=== PATIENT | male | born 1950 | race Caucasian/White ===

== ENCOUNTER → 2018-11-20 | Outpatient (CLI) | payer MEDICARE, OTHER ==
[2018-11-20 10:45] VITALS: BP 155/74; PULSE 86; TEMP 97.8; BMI 62.3
--- NOTE | 2018-11-20 12:23 | P.HPBAR ---
Bariatric H&P - History & Physicial H&P Date: 11/20/18 History & Physicial: Visit/CC: initial consult Patient initial contact: Initial weight: 194.138 kg Initial weight in pounds: 428.00 Height: 5 ft 9.5 in Initial BMI: 62.3 Last weight: Current weight: 194.138 kg Current weight in pounds: 428.00 Current BMI: 62.3 [place] body weight (based on NIH guidelines): 73.936 kg Excess body weight loss: 0.0% The patient is a 68 year-old M who presents for Bariatric Assessment. HPI: He looking into gastrectomy. His highest weight is at present. He was 280 to 320 pounds. He reports trouble with the hips, knees, and feet where he takes Lasix for swelling. He likes to be active in the summer time. His brother also has morbid obesity. No stomach or esophageal cancer. He reports taking gastritis from his potassium. He presents today at 428 pounds. He still has his gallbladder. No reports with food intolerance. Colonoscopy was 10 years ago. He walks in with his buggie. He loves his chicken wings. MS: 2+ pitting edema ABDOMEN: Nontender ASSESSMENT: 1. Morbid obesity PLAN: 1. Need bariatric labs 2. EGD and colonoscopy as he is also due for screening. 3. Medicare guidelines. 4. Applications Development Consultant for severe obstructive sleep apnea. 5. Case Management Director assessment advised. Past Medical History Past Medical History: Sleep Apnea/CPAP/BIPAP, Vascular Disorder Additional Past Medical History / Comment(s): venous insufficiency History of Any Multi-Drug Resistant Organisms: None Reported Past Surgical History: Orthopedic Surgery Additional Past Surgical History / Comment(s): lumbar fusion, right wrist surgery , thumb surgery Past Anesthesia/Blood Transfusion Reactions: No Reported Reaction Smoking Status: Former smoker Surgical - Exam Vital Signs Temp Pulse BP 97.8 F 86 155/74 11/20/18 10:24 11/20/18 10:24 11/20/18 10:24 Bariatric Checklist Checklist: Plan: Checklist: EGD: 1. Hiatal hernia: 2. H. Pylori: HgbA1c: Vitamin D: Smoking: Former smoker Primary care physician referral: babs tang Psychiatry clearance: Cardiology clearance: Sleep study: Diet journal: VTE risk score: VTE risk level: Rehab needs at discharge:
[2018-11-20 13:37] LABS: HGB 13.6 gm/dL (13.0-17.5); Hypochromasia Moderate; MCHC 31.6 g/dL (31.0-37.0); MCV 85.5 fL (80.0-100.0); Mean Platelet Volume 8.7; Platelet Count 166 k/uL (150-450); RBC 5.03 m/uL (4.30-5.90); RDW 15.5 % (11.5-15.5); WBC 8.3 k/uL (3.8-10.6)
[2018-11-20 13:40] LABS: Partial Thromboplastin Time 29.1 sec (22.0-30.0); Prothrombin Time 10.6 sec (9.0-12.0)
[2018-11-20 18:50] LABS: Parathyroid Hormone Intact 73.2 pg/mL (14.0-72.0)
[2018-11-20 20:50] LABS: Albumin 4.5 g/dL (3.80-4.90); Albumin/Globulin Ratio 1.41 (1.60-3.17); Anion Gap 10.5 mmol/L (4.00-12.00); Calcium 9.9 mg/dL (8.7-10.3); Carbon Dioxide 29.5 mmol/L (21.6-31.8); Globulin 3.2 g/dL (1.6-3.3); LDL Cholesterol,Calculated 144.2 mg/dL (0.0-131.0); Magnesium 1.8 mg/dL (1.5-2.4); Total Bilirubin 0.5 mg/dL (0.3-1.2); Total Protein 7.7 g/dL (6.2-8.2); VLDL Calculation 26.8 mg/dL (5.00-40.00)
[2018-11-20 21:08] LABS: Iron Saturation 14.51 (15.00-50.00)
[2018-11-20 21:23] LABS: Vitamin D 25 Hydroxy 12.1 ng/mL (30.0-100.0)
[2018-11-20 22:57] LABS: Hemoglobin A1C 7.3 % (4.0-6.0)
[2018-11-21 12:54] LABS: Zinc, Serum 81 ug/dL (60-130)
== END | disposition home or self-care (01) ==
LOC: BARWHC3 09:26
PROVIDERS: ATTEND Surgery Plastic and Reconstructive Surgery
DX: E66.01 Morbid (severe) obesity due to excess calories (principal); Z68.44 Body mass index [BMI] 60.0-69.9, adult; Z87.891 Personal history of nicotine dependence
CPT/HCPCS: 84255; 84134; 84425; 80061; 80053; 82607; 82728; 82525; 82746; 83540; 83550; 83735; 84100; 84443; 84590; 84630; 85027; 85610; 85730; 82306; 83970; 83036; 93005; 36415; G0463; 99201

== ENCOUNTER → 2019-01-19 | Outpatient (CLI) | payer MEDICARE, OTHER ==
[2019-01-19 12:51] VITALS: BMI 62.4
== END ==
LOC: BARWHC3 07:57
PROVIDERS: ATTEND Surgery Plastic and Reconstructive Surgery
DX: E66.01 Morbid (severe) obesity due to excess calories (principal); Z68.44 Body mass index [BMI] 60.0-69.9, adult
CPT/HCPCS: 97804

== ENCOUNTER 2019-01-26 09:40 | Day surgery (SDC) | payer MEDICARE, OTHER ==
[2019-01-21 14:57] VITALS: BMI 62.3
--- NOTE | 2019-01-25 21:00 | P.GSHP ---
History of Present Illness H&P Date: 01/26/19 CHIEF COMPLAINT: GERD and colon screen HISTORY OF PRESENT ILLNESS: The patient is a 68-year-old male who presents with gastroesophageal reflux disease and need for colon screen. Upper and lower endoscopy were offered for further evaluation and management. PAST MEDICAL HISTORY: Please see list. PAST SURGICAL HISTORY: Please see list. MEDICATIONS: Please see list. ALLERGIES: Please see list. SOCIAL HISTORY: No illicit drug use FAMILY HISTORY: No reports of Crohn disease or ulcerative colitis. REVIEW OF ORGAN SYSTEMS: CONSTITUTIONAL: No reports of fevers or chills. GI: Denies any blood in stools or constipation. PHYSICAL EXAM: VITAL SIGNS: Stable GENERAL: Well-developed pleasant in no acute distress. HEENT: No scleral icterus. Extraocular movements grossly intact. Moist buccal mucosa. NECK: Supple without lymphadenopathy. CHEST: Unlabored respirations. Equal bilateral excursions. CARDIOVASCULAR: Regular rate and rhythm. Distal 2+ pulses. ABDOMEN: Soft, nondistended. MUSCULOSKELETAL: No clubbing, cyanosis, or edema. ASSESSMENT: 1. Gastroesophageal reflux disease 2. Colon screen. PLAN: 1. Recommend proceeding with an upper and lower endoscopy Past Medical History Past Medical History: Diabetes Mellitus, Sleep Apnea/CPAP/BIPAP, Vascular Disorder Additional Past Medical History / Comment(s): venous insufficiency-BLE History of Any Multi-Drug Resistant Organisms: None Reported Past Surgical History: Back Surgery, Orthopedic Surgery Additional Past Surgical History / Comment(s): lumbar fusion, right wrist surgery , thumb surgery, LT HAND MIDDLE FINGER SX, EGD, COLONOSCOPY Past Anesthesia/Blood Transfusion Reactions: No Reported Reaction Smoking Status: Former smoker - Past Family History Mother Family Medical History: Cancer Medications and Allergies Home Medications Medication Instructions Recorded Confirmed Type Furosemide [Lasix] 40 mg PO DAILY 11/05/18 01/21/19 History Potassium Chloride 20 meq PO BID 11/05/18 01/21/19 History Ibuprofen [Motrin] 800 mg PO DIRECTED 11/20/18 01/21/19 History Dubois-3 Fatty Acids [Dubois-3] 1 tab PO DAILY 11/20/18 01/21/19 History metFORMIN HCL [Glucophage] 500 mg PO DAILY 01/19/19 01/21/19 History Ubidecarenone [Co Q-10] 100 mg PO DAILY 01/21/19 01/21/19 History Allergies Allergy/AdvReac Type Severity Reaction Status Date / Time duloxetine [From Cymbalta] AdvReac Vomiting Verified 01/21/19 14:44
[~2019-01-26 09:40] MED LIST: LACTATED RINGERS 1,000 ML IV SCH
[2019-01-26 10:44] VITALS: TEMP 98.1
[2019-01-26] MEDS ORDERED: LIDOCAINE 1% 20 ML VIAL (10MG/ML) FOR IV START INTRADERMA ONE (10:48)
[2019-01-26 10:53] LABS: Glucose,Whole Blood 118 mg/dL (75-99)
[2019-01-26] MEDS ORDERED: PROPOFOL 10 MG/ML 20 ML VIAL IV ONE (11:25)
--- NOTE | 2019-01-26 11:42 | P.PCN ---
Date of Procedure: 01/26/19 Description of Procedure: PREOPERATIVE DIAGNOSIS: Gastroesophageal reflux disease. Morbid obesity, BMI 62.3 Obstructive sleep apnea POSTOPERATIVE DIAGNOSIS: Gastroesophageal reflux disease. Morbid obesity, BMI 62.3 Obstructive sleep apnea Gastritis. OPERATION: Esophagogastroduodenoscopy with biopsies along antrum. SURGEON: Miranda Morris MD ANESTHESIA: MAC. INDICATIONS: The patient is a 68-year-old male who presents with a history of reflux disease. Benefits and risks of the procedure were described. Informed consent was obtained. DESCRIPTION: The patient was brought into the endoscopy suite and laid in the left lateral decubitus position. An Olympus gastroscope was passed along the posterior oropharynx down to the distal esophagus where the squamocolumnar junction was encountered at 43 cm from the incisors. The stomach was entered and no bile reflux was found. Additional findings are listed below. Biopsies with cold forceps were obtained of the antrum. The first through third portion of the duodenum was examined and unremarkable. Retroflexion of the scope confirmed Hill grade 2 lower esophageal valve. The squamocolumnar junction demonstrated LA grade B erosive esophagitis. The stomach was desufflated. The patient tolerated the procedure well. FINDINGS: Squamocolumnar junction 43 cm from the incisors. Diaphragmatic hiatus at 43 cm. Hill grade 2 lower esophageal valve. LA grade B erosive esophagitis. No active duodenitis. Chronic gastritis RECOMMENDATIONS: Upper endoscopy as needed.
--- NOTE | 2019-01-26 11:59 | P.PCN ---
Date of Procedure: 01/26/19 Description of Procedure: PREOPERATIVE DIAGNOSIS: Colonoscopy screening Super morbid obesity, BMI 62.3 Severe chronic obstructive pulmonary disease POSTOPERATIVE DIAGNOSIS: Colonoscopy screening Super morbid obesity, BMI 62.3 Severe chronic obstructive pulmonary disease Transverse colon polyp OPERATION: Colonoscopy to the ileocecal valve and appendiceal orifice. Colonoscopy with cold forceps biopsies. SURGEON: Miranda Morris MD. ANESTHESIA: MAC. INDICATIONS: The patient is a -year-old male who presents for colonoscopy screening. Last colonoscopy 10 years ago. Benefits and risks were described and informed consent was obtained. DESCRIPTION OF PROCEDURE: The patient had undergone Gatorade, MiraLAX and Dulcolax prep. He had been brought into the operating room and laid in the left lateral decubitus position. After adequate intravenous sedation, the rectum was examined with 2% lidocaine jelly. No external hemorrhoids were encountered. The rectal tone was within normal limits. No lesions were palpated in the rectal vault. An Olympus colonoscope was advanced until the ileocecal valve and appendiceal orifice were clearly viewed. The prep was good. The scope was removed with visualization of each mucosal fold. No scattered diverticulosis was encountered. At mid transverse colon, 4 mm adenoma was resected using cold forcep biopsy. No evidence of focal colitis was found. Retroflexion of the scope demonstrated no internal hemorrhoids without active bleeding or inflammation. The colon was desufflated. The patient had tolerated the procedure well. Withdrawal time was over 6 minutes. FINDINGS: Aronchick preparation quality scale 1 (1-5) No internal hemorrhoids No external hemorrhoids No arteriovenous malformations. No sigmoid diverticulosis Removal of 1 polyp: - Cold forceps biopsy at mid transverse colon, 5 mm polyp. No focal colitis. RECOMMENDATIONS: Repeat colonoscopy 5 years, 2023 Plan - Discharge Summary Discharge Rx Participant: Yes New Discharge Prescriptions: No Action Furosemide [Lasix] 40 mg PO DAILY Potassium Chloride 20 meq PO BID Ibuprofen [Motrin] 800 mg PO DIRECTED Amigo-3 Fatty Acids [Amigo-3] 1 tab PO DAILY metFORMIN HCL [Glucophage] 500 mg PO DAILY Ubidecarenone [Co Q-10] 100 mg PO DAILY Discharge Medication List Furosemide [Lasix] 40 mg PO DAILY 11/05/18 [History] Potassium Chloride 20 meq PO BID 11/05/18 [History] Ibuprofen [Motrin] 800 mg PO DIRECTED 11/20/18 [History] Amigo-3 Fatty Acids [Amigo-3] 1 tab PO DAILY 11/20/18 [History] metFORMIN HCL [Glucophage] 500 mg PO DAILY 01/19/19 [History] Ubidecarenone [Co Q-10] 100 mg PO DAILY 01/21/19 [History] Follow up Appointment(s)/Referral(s): [facility] [[facility]-STAFF] - 02/18/19 Patient Instructions/Handouts: Colorectal Polyps (DC) Activity/Diet/Wound Care/Special Instructions: Repeat colonoscopy in 5 years, 2023
[2019-01-26 12:11] VITALS: RESP 16
[2019-01-26 12:22] VITALS: BP 137/83; PULSE 83
== END 2019-01-26 12:45 | disposition home or self-care (01) ==
LOC: ORWHC2ENDO 09:40
PROVIDERS: ATTEND Surgery Plastic and Reconstructive Surgery
DX: Z12.11 Encounter for screening for malignant neoplasm of colon (principal); K63.5 Polyp of colon; K29.50 Unspecified chronic gastritis without bleeding; K22.10 Ulcer of esophagus without bleeding; E66.01 Morbid (severe) obesity due to excess calories; Z68.44 Body mass index [BMI] 60.0-69.9, adult; J44.9 Chronic obstructive pulmonary disease, unspecified; G47.33 Obstructive sleep apnea (adult) (pediatric); Z99.89 Dependence on other enabling machines and devices; E11.9 Type 2 diabetes mellitus without complications; I87.2 Venous insufficiency (chronic) (peripheral); Z87.891 Personal history of nicotine dependence; Z79.84 Long term (current) use of oral hypoglycemic drugs; Z79.1 Long term (current) use of non-steroidal anti-inflammatories (NSAID); Z79.899 Other long term (current) drug therapy; Z88.8 Allergy status to other drugs, medicaments and biological substances
CPT/HCPCS: 88305; 45380; 43239; J2704

== ENCOUNTER → 2019-02-18 | Outpatient (CLI) | payer MEDICARE, OTHER ==
[2019-02-18 13:31] VITALS: BP 149/83; PULSE 93; TEMP 98.5; BMI 61.4
--- NOTE | 2019-02-18 14:06 | P.PN ---
Subjective Progress Note Date: 02/18/19 DATE OF SERVICE: 02/18/2019 CHIEF COMPLAINT: Morbid obesity. HISTORY OF PRESENT ILLNESS: Kartik Andersen is a 68-year-old male who comes with lifelong morbid obesity. He reports arthritis of the hips, knees, and feet. He has developed diabetes type 2 which is a new diagnosis upon his initial assessment. He has also developed sleep apnea, venous insufficiency, hypertensive heart disease as a result of his morbid obesity. He has completed and upper endoscopy. He is looking into the sleeve gastrectomy. At height of 5 feet 9.5 inches, his ideal body weight is 168 pounds. He was 428 pounds. Today he comes in 421 pounds from 3 months ago. He has lost 6 pounds in 3 months. His body mass index down from 62.3 to 61.5. He is 253 pounds overweight. PAST MEDICAL HISTORY: 1. Morbid obesity due to excess calories 2. Body mass index of 62.3, initial 3. Osteoarthritis of the knees. 4. Hypertensive heart disease. 5. Osteoarthritis of the hips 6. Bilateral lower extremity edema 7. Obstructive sleep apnea 8. Venous insufficiency 9. Osteoarthritis of the lower back. 10. Vitamin D deficiency PAST SURGICAL HISTORY: 1. Lumbar fusion 2. Wrist surgary 3. Thumb surgery HOME MEDICATIONS: ALLERGIES: Medications and Allergies Home Medications Medication Instructions Recorded Confirmed Type Furosemide [Lasix] 40 mg PO DAILY 11/05/18 11/05/18 History Potassium Chloride 10 mg PO QID 11/05/18 11/05/18 History Ibuprofen [Motrin] 800 mg PO DIRECTED 11/20/18 11/20/18 History Placida-3 Fatty Acids [Placida-3] 1 tab PO DAILY 11/20/18 11/20/18 History Sodium, Potassium,Mag Sulfates 354 ml PO DIRECTED #1 kit 11/20/18 Rx [Suprep Bowel Prep Kit] Ergocalciferol [Vitamin D2 50,000 unit PO WEEKLY 12/04/18 12/04/18 History (DRISDOL)] Allergies Allergy/AdvReac Type Severity Reaction Status Date / Time duloxetine [From Cymbalta] AdvReac Vomiting Verified 11/05/18 08:11 SOCIAL HISTORY: Past tobacco use. FAMILY HISTORY: No family history of ulcerative colitis disease or Crohn's disease. Family history of morbid obesity. No lupus in the family. No reports of stomach or esophageal cancer. REVIEW OF ORGAN SYSTEMS: CONSTITUTIONAL: At height of 5 feet 9.5 inches, his ideal body weight is 168 pounds. He comes in 428 pounds. His body mass index is 62.3. He is 260 pounds overweight. HEENT: Denies any active troubles with vision or hearing. ENDOCRINE: No diabetes. No hypothyroidism. CARDIOVASCULAR: No past reports of palpitations or heart attacks or chest pain. RESPIRATORY: Has daytime somnolence. No asthma. GASTROINTESTINAL: Denies any bright red blood per rectum. No diarrhea. No constipation. MUSCULOSKELETAL: Has lower back pain and joint pain. Has osteoarthritis of the knees. NEURO: No headaches. No seizure disorders. PSYCH: No depression. No suicidal ideation. RHEUMATOLOGIC: No lupus. No rheumatoid arthritis. HEMATOLOGIC: Denies any abnormal bleeding or bruising. No personal history of DVTs. SKIN: No rash. No skin cancer. PHYSICAL EXAM: VITAL SIGNS: Height 5 foot 9.5 inches, weight 421 pounds. BMI 61.5 Vital Signs Temp 98.5 F 02/18/19 13:28 Pulse 93 02/18/19 13:28 Resp BP 149/83 02/18/19 13:28 Pulse Ox GENERAL: Well-developed in no acute distress. HEENT: No scleral icterus. Extraocular movements grossly intact. Hears conversational speech. No nasal drainage. NECK: Supple without lymphadenopathy. CHEST: Nonlabored respirations with equal bilateral excursions. CARDIOVASCULAR: Regular rate and regular rhythm. Distal 2+ pulses. ABDOMEN: Obese, soft, nontender, nondistended. MUSCULOSKELETAL: No clubbing, cyanosis. Gross strength 5/5 distal lower extremities. 2+ pitting edema NEURO: No focal or lateralizing signs. Cranial nerves 2 through 12 grossly within normal limits. PSYCH: Appropriate affect. Alert and oriented to person, place and time. SKIN: Good skin turgor. Well perfused. EGD FINDINGS: Squamocolumnar junction 43 cm from the incisors. Diaphragmatic hiatus at 43 cm. Hill grade 2 lower esophageal valve. LA grade B erosive esophagitis. No active duodenitis. Chronic gastritis Final Pathologic Diagnosis A. GASTRIC ANTRUM, BIOPSY: Mild chronic gastritis. Helicobacter pylori organisms are not identified on routine H+E sections. B. TRANSVERSE COLON, BIOPSY: Benign colonic mucosa with mild reactive/hyperplastic changes. COLON FINDINGS: [facility] preparation quality scale 1 (1-5) No internal hemorrhoids No external hemorrhoids No arteriovenous malformations. No sigmoid diverticulosis Removal of 1 polyp: - Cold forceps biopsy at mid transverse colon, 5 mm polyp. No focal colitis. ASSESSMENT: 1. Morbid obesity due to excess calories 2. Body mass index of 62.3 to 61.5 3. Osteoarthritis of the knees. 4. Hypertensive heart disease. 5. Osteoarthritis of the hips 6. Bilateral lower extremity edema 7. Obstructive sleep apnea 8. Venous insufficiency 9. Osteoarthritis of the lower back. 10. Vitamin D deficiency 11. Elevated Hgb A1C with new diagnosis of diabetes type 2 12. Iron deficiency anemia 13. Vitamin A deficiency 14. Erosive esophagitis PLAN: 1. Bariatric options between a sleeve, band and a Radu-en-Y gastric bypass were reviewed in detail. The patient elected for a sleeve gastrectomy. Robotic assisted approach described. 2. The [place] [facility] Data was also reviewed with benefits and risks as described. 3. An 8 page second-generation bariatric consent form was reviewed in detail including potential of bleeding, infection, leaks, adequate weight loss, nutritional deficiencies which the patient demonstrated understanding of the risks. 4. A 2 week high-protein low caloric 800 kcal diet described to address hepatomegaly. 5. Preoperative labs including complete metabolic panel and CBC with type and screen recommended. 6. DVT prophylaxis per [place] [facility]. 7. Antibiotic prophylaxis. 8. Inpatient hospitalization anticipated for more than 2 nights. 9. All questions and concerns were addressed with the patient. 10. He is very high risk of perioperative complications with his moderate obstructive sleep apnea, hypertensive heart disease and limited mobility. Objective - Vital Signs Vital signs: Vital Signs Temp 98.5 F 02/18/19 13:28 Pulse 93 02/18/19 13:28 Resp BP 149/83 02/18/19 13:28 Pulse Ox Intake & Output 02/17/19 02/18/19 02/18/19 18:59 06:59 18:59 Weight 191.507 kg
== END | disposition home or self-care (01) ==
LOC: BARWHC3 12:55
PROVIDERS: ATTEND Surgery Plastic and Reconstructive Surgery
DX: E66.01 Morbid (severe) obesity due to excess calories (principal); M17.0 Bilateral primary osteoarthritis of knee; I11.9 Hypertensive heart disease without heart failure; M16.0 Bilateral primary osteoarthritis of hip; R60.0 Localized edema; G47.33 Obstructive sleep apnea (adult) (pediatric); I87.2 Venous insufficiency (chronic) (peripheral); E55.9 Vitamin D deficiency, unspecified; E11.9 Type 2 diabetes mellitus without complications; D58.2 Other hemoglobinopathies; D50.9 Iron deficiency anemia, unspecified; E50.9 Vitamin A deficiency, unspecified; M19.90 Unspecified osteoarthritis, unspecified site; K22.10 Ulcer of esophagus without bleeding; Z79.1 Long term (current) use of non-steroidal anti-inflammatories (NSAID); Z79.899 Other long term (current) drug therapy; Z87.891 Personal history of nicotine dependence; Z68.44 Body mass index [BMI] 60.0-69.9, adult; Z88.8 Allergy status to other drugs, medicaments and biological substances
CPT/HCPCS: 99211

== ENCOUNTER → 2019-02-27 | Outpatient (CLI) | payer MEDICARE, OTHER ==
[2019-02-27 10:34] LABS: Basophils % (A) 0 %; Eosinophils # (A) 0.2 k/uL (0-0.7); Eosinophils % (A) 2 %; HGB 13.9 gm/dL (13.0-17.5); Lymphocytes # (A) 1.1 k/uL (1.0-4.8); Lymphocytes % (A) 12 %; MCH 26.2 pg (25.0-35.0); MCHC 30.9 g/dL (31.0-37.0); MCV 84.7 fL (80.0-100.0); Mean Platelet Volume 8.7; Monocytes # (A) 0.4 k/uL (0-1.0); Monocytes % (A) 4 %; Neutrophils # (A) 7.2 k/uL (1.3-7.7); Neutrophils % (A) 79 %; Platelet Count 178 k/uL (150-450); RBC 5.31 m/uL (4.30-5.90); RDW 15.1 % (11.5-15.5); WBC 9.2 k/uL (3.8-10.6)
[2019-02-27 10:48] LABS: ALT 32 U/L (21-72); AST 44 U/L (17-59); African American GFR (CKD) >90 (>60 ml/min/1.73 sqM); Albumin 4.4 g/dL (3.5-5.0); Alkaline Phosphatase 86 U/L (38-126); Anion Gap 9 mmol/L; Blood Urea Nitrogen 23 mg/dL (9-20); Calcium 9.6 mg/dL (8.4-10.2); Carbon Dioxide 30 mmol/L (22-30); Chloride 100 mmol/L (98-107); Glucose 106 mg/dL (74-99); Potassium 4.5 mmol/L (3.5-5.1); Sodium 139 mmol/L (137-145); Total Bilirubin 0.8 mg/dL (0.2-1.3)
== END ==
LOC: LABPAT 09:47
PROVIDERS: ATTEND Surgery Plastic and Reconstructive Surgery
DX: Z01.812 Encounter for preprocedural laboratory examination (principal)
CPT/HCPCS: 80053; 85025

== ENCOUNTER 2019-03-09 09:53 | Inpatient (IN) | payer MEDICARE, OTHER ==
--- NOTE | 2019-03-09 06:23 | P.GSHP ---
History of Present Illness H&P Date: 03/09/19 DATE OF SERVICE: 03/09/2019 CHIEF COMPLAINT: Morbid obesity HISTORY OF PRESENT ILLNESS: Kartik Andersen is a 68-year-old male who comes with lifelong morbid obesity. He is looking into the sleeve gastrectomy. He reports arthritis of the hips, knees, and feet. He has been recently diagnosed with diabetes type 2 and has hypertensive heart disease including obstructive sleep apnea. At height of 5 feet 9.5 inches, his ideal body weight is 168 pounds. He was 428 pounds. His body mass index was 62.3. He was 260 pounds overweight. PAST MEDICAL HISTORY: 1. Morbid obesity due to excess calories 2. Body mass index of 62.3, initial 3. Osteoarthritis of the knees. 4. Hypertensive heart disease. 5. Osteoarthritis of the hips 6. Bilateral lower extremity edema 7. Obstructive sleep apnea 8. Venous insufficiency 9. Osteoarthritis of the lower back. 10. Vitamin D deficiency PAST SURGICAL HISTORY: 1. Lumbar fusion 2. Wrist surgary 3. Thumb surgery HOME MEDICATIONS: ALLERGIES: Home Medications Medication Instructions Recorded Confirmed Type Furosemide [Lasix] 40 mg PO DAILY 11/05/18 11/05/18 History Potassium Chloride 10 mg PO QID 11/05/18 11/05/18 History Ibuprofen [Motrin] 800 mg PO DIRECTED 11/20/18 11/20/18 History Blair-3 Fatty Acids [Blair-3] 1 tab PO DAILY 11/20/18 11/20/18 History Sodium, Potassium,Mag Sulfates 354 ml PO DIRECTED #1 kit 11/20/18 Rx [Suprep Bowel Prep Kit] Ergocalciferol [Vitamin D2 50,000 unit PO WEEKLY 12/04/18 12/04/18 History (DRISDOL)] Allergies Allergy/AdvReac Type Severity Reaction Status Date / Time duloxetine [From Cymbalta] AdvReac Vomiting Verified 11/05/18 08:11 SOCIAL HISTORY: Past tobacco use. FAMILY HISTORY: No family history of ulcerative colitis disease or Crohn's disease. Family history of morbid obesity. No lupus in the family. No reports of stomach or esophageal cancer. REVIEW OF ORGAN SYSTEMS: CONSTITUTIONAL: At height of 5 feet 9.5 inches, his ideal body weight is 168 pounds. He comes was 428 pounds. His body mass index is 62.3. He is 260 poun ds overweight. HEENT: Denies any active troubles with vision or hearing. ENDOCRINE: No diabetes. No hypothyroidism. CARDIOVASCULAR: No past reports of palpitations or heart attacks or chest pain. RESPIRATORY: Has daytime somnolence. No asthma. GASTROINTESTINAL: Denies any bright red blood per rectum. No diarrhea. No constipation. MUSCULOSKELETAL: Has lower back pain and joint pain. Has osteoarthritis of the knees. NEURO: No headaches. No seizure disorders. PSYCH: No depression. No suicidal ideation. RHEUMATOLOGIC: No lupus. No rheumatoid arthritis. HEMATOLOGIC: Denies any abnormal bleeding or bruising. No personal history of DVTs. SKIN: No rash. No skin cancer. PHYSICAL EXAM: VITAL SIGNS: Height 5 foot 9.5 inches, weight 421 pounds. BMI 61.3 GENERAL: Well-developed in no acute distress. HEENT: No scleral icterus. Extraocular movements grossly intact. Hears conversational speech. No nasal drainage. NECK: Supple without lymphadenopathy. CHEST: Nonlabored respirations with equal bilateral excursions. CARDIOVASCULAR: Regular rate and regular rhythm. Distal 2+ pulses. ABDOMEN: Obese, soft, nontender, nondistended. MUSCULOSKELETAL: No clubbing, cyanosis. Gross strength 5/5 distal lower extremities. 2+ pitting edema NEURO: No focal or lateralizing signs. Cranial nerves 2 through 12 grossly within normal limits. PSYCH: Appropriate affect. Alert and oriented to person, place and time. SKIN: Good skin turgor. Well perfused. ASSESSMENT: 1. Morbid obesity due to excess calories 2. Body mass index of 62.3, initial 3. Osteoarthritis of the knees. 4. Hypertensive heart disease. 5. Osteoarthritis of the hips 6. Bilateral lower extremity edema 7. Obstructive sleep apnea 8. Venous insufficiency 9. Osteoarthritis of the lower back. 10. Vitamin D deficiency PLAN: 1. Bariatric options between a sleeve, band and a Radu-en-Y gastric bypass were reviewed in detail. The patient elected for a sleeve gastrectomy. Robotic assisted approach described. 2. The [place] [facility] Data was also reviewed with benefits and risks as described. 3. An 8 page second-generation bariatric consent form was reviewed in detail including potential of bleeding, infection, leaks, adequate weight loss, nutritional deficiencies which the patient demonstrated understanding of the risks. 4. A 2 week high-protein low caloric 800 kcal diet described to address hepatomegaly. 5. Preoperative labs including complete metabolic panel and CBC with type and screen recommended. 6. DVT prophylaxis per [place] [facility]. 7. Antibiotic prophylaxis. 8. Inpatient hospitalization anticipated for more than 2 nights. 9. All questions and concerns were addressed with the patient. Past Medical History Past Medical History: Diabetes Mellitus, Rheumatoid Arthritis (RA), Skin Disorder, Sleep Apnea/CPAP/BIPAP, Vascular Disorder Additional Past Medical History / Comment(s): past hypertension-not currently on rx, hx varicose veins, no CPAP used, gout, legs occ turn purple from knees down from poor circulation, occ edema lower legs, "fractured L5" History of Any Multi-Drug Resistant Organisms: None Reported Past Surgical History: Back Surgery, Orthopedic Surgery Additional Past Surgical History / Comment(s): lumbar fusion(hardware), right wrist partial fusion , left thumb reconstruction after crushing injury Past Anesthesia/Blood Transfusion Reactions: No Reported Reaction Additional Past Anesthesia/Blood Transfusion Reaction / Comment(s): claustrophobia Smoking Status: Former smoker - Past Family History Mother Family Medical History: Cancer Medications and Allergies Home Medications Medication Instructions Recorded Confirmed Type Furosemide [Lasix] 40 mg PO DAILY 11/05/18 03/04/19 History Potassium Chloride 20 meq PO BID 11/05/18 03/04/19 History Blair-3 Fatty Acids [Blair-3] 1 tab PO DAILY 11/20/18 03/04/19 History metFORMIN HCL [Glucophage] 500 mg PO DAILY 01/19/19 03/04/19 History Ubidecarenone [Co Q-10] 100 mg PO DAILY 01/21/19 03/04/19 History Ibuprofen [Motrin] 800 mg PO TID PRN 03/04/19 03/04/19 History Oxymetazoline 0.05% Nasl [place] 2 spray EA NOSTRIL BID PRN 03/04/19 03/04/19 History [Afrin 0.05% Nasal [place]] Allergies Allergy/AdvReac Type Severity Reaction Status Date / Time duloxetine [From Cymbalta] AdvReac Vomiting Verified 03/04/19 08:09
[~2019-03-09 09:53] MED LIST changes: +CHLORHEXIDINE GLUCONATE 15 ML CUP MUCOUS MEM ONE; +DEXAMETHASONE SOD PHOSPHATE 10 MG/ML 1 ML VIAL IV ONE; +ENOXAPARIN 40 MG/0.4 ML SYRINGE SQ ONE; -LACTATED RINGERS 1,000 ML IV SCH; +LIDOCAINE 1% 20 ML VIAL (10MG/ML) FOR IV START INTRADERMA PRN; +MIDAZOLAM 2 MG/2 ML VIAL IV PRN; +PANTOPRAZOLE 40 MG/10 ML VIAL IV ONE; +ceFAZolin 3 GM in SODIUM CHLORIDE 0.9% 100 ML IVPB ONE; +fentaNYL (PF) 50 MCG/ML 2 ML AMP IV PRN
[2019-03-09 11:15] LABS: Glucose,Whole Blood 108 mg/dL (75-99)
[2019-03-09] MEDS ORDERED: ONDANSETRON 4 MG/2 ML VIAL IVP ONE (11:15)
[2019-03-09] MEDS ORDERED: LACTATED RINGERS 1,000 ML IV ONE (11:15)
[2019-03-09] MEDS ORDERED: fentaNYL (PF) 50 MCG/ML 2 ML AMP ONE (12:00)
[2019-03-09] MEDS ORDERED: NEOSTIGMINE 1 MG/ML 10 ML VIAL ONE (12:00)
[2019-03-09] MEDS ORDERED: KETAMINE 10 MG/ML 20 ML VIAL ONE (12:00)
[2019-03-09] MEDS ORDERED: LIDOCAINE 1% INJ 10MG/ML (20 ML MDV) ONE (12:00)
[2019-03-09] MEDS ORDERED: ROCURONIUM BROMIDE 10 MG/ML 10 ML VIAL IV ONE (12:00)
[2019-03-09] MEDS ORDERED: SUCCINYLCHOLINE CHLORIDE VIAL 200 MG/10 ML VIAL IV ONE (12:00)
[2019-03-09] MEDS ORDERED: PROPOFOL 10 MG/ML 20 ML VIAL IV ONE (12:00)
[2019-03-09] MEDS ORDERED: GLYCOPYRROLATE 0.2 MG/ML 2 ML VIAL ONE (12:00)
[2019-03-09] MEDS ORDERED: MIDAZOLAM 2 MG/2 ML VIAL ONE (12:00)
[2019-03-09] MEDS ORDERED: BUPIVACAINE (PF) 0.5% 30 ML VIAL SQ ONE (12:18)
[2019-03-09] MEDS ORDERED: OXYMETAZOLINE 0.05% NASL SPRAY 1 SPRAY BOTTLE EA NOSTRIL PRN (14:18)
[2019-03-09] MEDS ORDERED: HYDROmorphone 1 MG/ML 1 ML SYRINGE IVP PRN (14:21)
[2019-03-09] MEDS ORDERED: NALOXONE 0.4 MG/ML 1 ML VIAL IV PRN (14:21)
[2019-03-09] MEDS ORDERED: HYDROcodone/APAP 15 ML SOLUTION PO PRN (14:21)
--- NOTE | 2019-03-09 14:26 | P.OP ---
Date of Procedure: 03/09/19 Description of Procedure: SURGEON: YONNY VASQUEZ MD PREOPERATIVE DIAGNOSES: 1. Morbid obesity. 2. Body mass index of 61.4 3. Osteoarthritis of the knees. 4. Osteoarthritis of the hips. 5. Osteoarthritis of the lower back. 6. Obstructive sleep apnea. 7. Hypertensive heart disease. 8. Osteoarthritis of the ankles. 9. Gastroesophageal reflux disease. POSTOPERATIVE DIAGNOSES: 1. Morbid obesity. 2. Body mass index of 47.6 to 41.1 3. Osteoarthritis of the knees. 4. Osteoarthritis of the hips. 5. Osteoarthritis of the lower back. 6. Obstructive sleep apnea. 7. Hypertensive heart disease. 8. Osteoarthritis of the ankles. 9. Gastroesophageal reflux disease. Cirrhosis of the liver with hepatomegaly Peritoneal adhesions left upper abdomen OPERATION: 1. Robotic assisted daVinci Xi laparoscopic sleeve gastrectomy with 40-Kittitian bougie, multiport. 2. Intraoperative esophagogastroduodenoscopy. ANESTHESIA: Gen. local anesthetic ESTIMATED BLOOD LOSS: 30 mL SPECIMENS REMOVED: Sleeve gastrectomy COMPLICATIONS: None. INDICATIONS: is a 68-year-old male with long-standing morbid obesity. He is looking into a sleeve gastrectomy. He comes in with osteoarthritis of multipe weight bearing joints, hypertensive heart disease and obstructive sleep apnea as a result of his obesity. At his height of 5 foot 9.5 inches, his ideal body weight is pounds. He had weighed pounds. Today, he comes in weighing pounds. Body mass index was down to . He is 114 pounds overweight. All surgical options for morbid obesity had been described using the [place] bariatric surgery collaborative comorbidity resolution including complication risk score. A second-generation bariatric consent form was described in detail including the possibility of protein malnutrition, leaks, gastric stricture, venous thrombosis, gastroesophageal reflux disease, need for further surgery for which he demonstrated understanding. Benefits and risks of the procedure were described at length. Informed consent was obtained. DESCRIPTION: The patient was brought into the operating room theater. Preoperatively he had received Lovenox subcutaneously for DVT prophylaxis. Additionally he had Peridex oral solution as an oral decontaminant. After general induction, the abdomen was prepped and draped in standard sterile fashion. An Ioban draping was placed along the abdomen. Farah catheter was placed. A robotic da Tahira Xi system was prepped and primed. At 15 cm from the xiphoid, proposed port sites were marked with indelible marker along the anterior axillary line bilaterally, mid axillary line bilaterally with each ports were marked 10 to 15 cm from each other. The clinical physician assistant port was marked along the left lateral abdominal wall. The robotic stapler port was marked for the right midclavicular line. A 5 mm 0 degrees laparoscopic trocar entry was performed along the left upper quadrant. The abdomen was insufflated to 15 mmHg pressure he tolerated well. Diagnostic laparoscopy demonstrated no injury to bowel, viscera, or mesentery. The liver surface was unremarkable without evidence of hepatomegaly or fatty liver disease. No injury had occurred to the small bowel or viscera. Along the hiatus no recurrent hiatal hernia was found. A 8 mm port was placed along the right upper abdominal wall after exchanging the 5 mm port. A separate 8 mm port was placed along the left lateral abdominal wall. Please note that the ports were placed at least 20 cm away from the target anatomy. Care was taken to check each robotic arms were safely away from collision with the bed or the patient. At the epigastrium, a medium sized Yo liver retractor was placed under direct visualization with the [employer] Lead placed under the right shoulder of the patient. Next, 12-mm robot stapler port was placed along the right upper quadrant. The camera 8-mm port was maintained along the epigastrium. The patient was repositioned in reverse Trendelenburg position at 16-degrees after lowering the bed. The robot was docked along the left side of the patient. Using a grasper for arm 4, a veseel sealer for arm 3, including grasper for arm 1, the robotic system was docked and primed as described. Instruments were interchanged by the clinical physician assistant for stapler loads. The camera wa s placed at 30-degrees down. I had sat at the console. The pylorus was identified and 6 cm proximally along the greater curvature of the stomach, the short gastrics were mobilized upwards to the angle of His using a vessel sealer. Hemostasis was excellent during this portion of the procedure. Next, the upper pole of the stomach was adherent to the left mary, which was gently dissected free using atraumatic grasper. The nursing postal supervisor placed a 40-Kittitian blunted tip bougie into the stomach. Robotic stapler black loads 60 mm x 2 followed by green 60 mm x 5 were used to create the sleeve. Initial firing was across the antrum of the stomach towards the angle of His. The staple line was completely hemostatic and linear without corkscrewing. Hemostasis was excellent. The space from the angularis incisura of the sleeve was approximately 4 cm. I then went to the head of the bed to perform the intraoperative esophagogastroduodenoscopy leak test. The upper pole of the stomach was bathed using normal saline solution. The scope was withdrawn with careful inspection along the staple line for which no leaks were found along the entire length. Additionally, the sleeve was completely hemostatic without any encroachment along the angularis incisura. Its topology was a soft "J". No stricture was encountered upon placement of the scope. The GI tract was desufflated. The patient tolerated this portion of the procedure well. The scope was completely withdrawn. The robot was undocked. I then rescrubbed into case, whereby the irrigation fluid was aspirated from the abdominal cavity. Tisseel fibrin sealant was placed along the entire staple length. Once dried the Yo liver retractor was removed. Attention was now brought to removal of the specimen. The distal end of the sleeve gastrectomy specimen was brought out through the 12 mm port at the left upper quadrant. The specimen was gently removed en total, corresponding to 27 cm x 5 cm sleeve gastrectomy specimen. No contamination had occurred during this process. All instruments and pneumoperitoneum including irrigation fluid was removed from the abdominal cavity. The 12 mm port site was irrigated with warm normal saline solution and diluted hydron peroxide. The 12-mm port site was reapproximated using 0 Vicryl and Gordo-Antonio of the left upper quadrant. The final incisions were closed using subcuticular interrupted suture of 4-0 Monocryl. Dermabond was applied to the skin once the skin had been cleansed. OptiFoam dressing was placed along the stomach extraction site. At the end of the procedure, needle, sponge, and instrument count was verified correct by the log data technician. The patient was taken to the postanesthesia care unit in stable condition. He had tolerated the procedure well. Intraoperative films and findings were reviewed with the patient's family. FINDINGS: 1. Negative intraoperative esophagogastrojejunoscopy leak test. 2. No large hiatus hernia. 3. Total of 7 staplers used including 2 - 60 mm black and 5 - 60 mm green robot romulo used to create the gastric sleeve. 4. Sleeve gastrectomy 27 x 5 cm
[2019-03-09 14:33] LABS: Glucose,Whole Blood 133 mg/dL (75-99)
[2019-03-09] MEDS ORDERED: BENZOCAINE/MENTHOL LOZENG 1 EACH LOZENGE MUCOUS MEM PRN (15:30)
[2019-03-09] MEDS: ALBUTEROL NEBULIZED 2.5 MG/3 ML INHALATION SCH ×2 (15:41→20:02)
[2019-03-09] MEDS: LACTATED RINGERS 1,000 ML IV SCH (16:56)
[2019-03-09 17:03] LABS: Glucose,Whole Blood 143 mg/dL (75-99)
[2019-03-09] MEDS: INSULIN ASPART (NovoLOG) 100 UNIT/ML VIAL SQ SCH (17:27)
[2019-03-09] MEDS: 0.9% NACL WITH KCL 20 MEQ/L 1,000 ML IV SCH ×2 (17:30→23:05)
[2019-03-09] MEDS: ACETAMINOPHEN IV (For NPO) 1,000 MG in EMPTY BAG 1 BAG IVPB SCH ×2 (17:30→23:00)
[2019-03-10 00:05] LABS: Glucose,Whole Blood 127 mg/dL (75-99)
[2019-03-10] MEDS: INSULIN ASPART (NovoLOG) 100 UNIT/ML VIAL SQ SCH ×3 (00:14→12:08)
[2019-03-10] MEDS: 0.9% NACL WITH KCL 20 MEQ/L 1,000 ML IV SCH (03:59)
[2019-03-10] MEDS: LACTATED RINGERS 1,000 ML IV SCH (04:57)
[2019-03-10 06:01] LABS: Glucose,Whole Blood 110 mg/dL (75-99)
[2019-03-10] MEDS: ACETAMINOPHEN IV (For NPO) 1,000 MG in EMPTY BAG 1 BAG IVPB SCH (06:39)
[2019-03-10] MEDS: ALBUTEROL NEBULIZED 2.5 MG/3 ML INHALATION SCH ×2 (07:10→11:04)
[2019-03-10] MEDS ORDERED: 0.9% NACL WITH KCL 20 MEQ/L 1,000 ML IV SCH (08:00)
[2019-03-10 08:59] LABS: African American GFR (CKD) >90 (>60 ml/min/1.73 sqM); Anion Gap 13 mmol/L; Blood Urea Nitrogen 16 mg/dL (9-20); Calcium 8.9 mg/dL (8.4-10.2); Carbon Dioxide 22 mmol/L (22-30); Chloride 103 mmol/L (98-107); Phosphorus 2.9 mg/dL (2.5-4.5); Sodium 138 mmol/L (137-145)
[2019-03-10] MEDS ORDERED: ENOXAPARIN 40 MG/0.4 ML SYRINGE SQ SCH (09:00)
[2019-03-10 09:06] LABS: Potassium 5.1 mmol/L (3.5-5.1)
[2019-03-10 09:09] LABS: Basophils % (A) 0 %; Eosinophils # (A) 0.1 k/uL (0-0.7); Eosinophils % (A) 1 %; HCT 45.2 % (39.0-53.0); HGB 14.2 gm/dL (13.0-17.5); Hypochromasia Slight; Lymphocytes # (A) 1.2 k/uL (1.0-4.8); Lymphocytes % (A) 10 %; MCH 27.5 pg (25.0-35.0); MCHC 31.4 g/dL (31.0-37.0); MCV 87.7 fL (80.0-100.0); Mean Platelet Volume 10.7; Monocytes % (A) 8 %; Neutrophils # (A) 9.7 k/uL (1.3-7.7); Neutrophils % (A) 80 %; RBC 5.16 m/uL (4.30-5.90); WBC 12.1 k/uL (3.8-10.6)
[2019-03-10 09:18] LABS: Platelet Count 150 k/uL (150-450)
[2019-03-10 09:22] VITALS: BP 149/71; RESP 12; TEMP 98.2
--- NOTE | 2019-03-10 09:24 | FL ---
EXAMINATION TYPE: FL UGI DATE OF EXAM: 03/10/2019 CLINICAL HISTORY: Status post gastric sleeve. TECHNIQUE: Limited esophagram is performed utilizing 30 mL of Isovue-370. A total of 1 minute and 2 seconds of fluoroscopic time was utilized during procedure. 23 fluoroscopic images were saved. COMPARISON: None. FINDINGS: The patient swallowed contrast without difficulty or delay. Esophageal peristalsis and mo tility are within normal limits. There is very mildly delayed flow of contrast along the diaphragmat ic hiatus into proximal stomach and subsequent flow into gastric sleeve. There is good flow from dist al sleeve into pylorus and proximal duodenum. Patient remains asymptomatic. There is no evidence of c ontrast extravasation to suggest leak. IMPRESSION: No evidence of leak status post recent gastric sleeve surgery. Very mild delay at the gas troesophageal junction likely relates to postoperative edema.
[2019-03-10 11:05] VITALS: PULSE 92
--- NOTE | 2019-03-10 11:23 | P.DS ---
Providers Date of admission: 03/09/19 10:32 Expected date of discharge: 03/10/19 Attending physician: Miranda Morris Primary care physician: Feli Page MD - Discharge Diagnosis(es) (1) Obesity Current Visit: Yes Status: Acute (2) Osteoarthritis Current Visit: Yes Status: Acute (3) Hypertensive heart disease Current Visit: Yes Status: Acute (4) GERD (gastroesophageal reflux disease) Current Visit: Yes Status: Acute Hospital Course: 68-year-old male who underwent robotic-assisted laparoscopic sleeve gastrectomy on 03/09/2019. Patient is doing well postoperatively without any immediate complications. He is tolerating clear liquid diet. Postoperative esophagram completed negative for leak or obstruction. Pain is controlled on oral medications. Vital signs have been stable. He is stable for discharge home today. Please see EMR for further hospital course details. Discharge Diagnosis 1. Morbid obesity. 2. Body mass index of 47.6 to 41.1 3. Osteoarthritis of the knees. 4. Osteoarthritis of the hips. 5. Osteoarthritis of the lower back. 6. Obstructive sleep apnea. 7. Hypertensive heart disease. 8. Osteoarthritis of the ankles. 9. Gastroesophageal reflux disease. 10. Cirrhosis of the liver with hepatomegaly 11. Peritoneal adhesions left upper abdomen Nurse practitioner note has been reviewed by physician. Signing provider agrees with the documented findings, assessment, and plan of care. Patient Condition at Discharge: Stable Plan - Discharge Summary Discharge Rx Participant: No New Discharge Prescriptions: New Acetaminophen Tab [Tylenol Tab] 650 mg PO Q4H PRN #30 tablet PRN Reason: Pain Bisacodyl [Dulcolax] 5 mg PO DAILY PRN #10 tablet.dr PRN Reason: Constipation Simethicone 40 mg/0.6 ml Drops [Mylicon Drops] 40 mg PO PCHS PRN #30 ml PRN Reason: gas Omeprazole 40 mg PO DAILY #30 cap Ondansetron Odt [Zofran Odt] 4 mg PO Q8HR PRN #9 tab PRN Reason: Nausea Continue Oxymetazoline 0.05% Nasl Harwood [Afrin 0.05% Nasal Harwood] 2 spray EA NOSTRIL BID PRN PRN Reason: Congestion Discontinued Furosemide [Lasix] 40 mg PO DAILY Potassium Chloride 20 meq PO BID Buckner-3 Fatty Acids [Buckner-3] 1,000 mg PO DAILY metFORMIN HCL [Glucophage] 500 mg PO DAILY Ubidecarenone [Co Q-10] 100 mg PO DAILY Ibuprofen [Motrin] 800 mg PO TID PRN PRN Reason: Pain Discharge Medication List Oxymetazoline 0.05% Nasl Harwood [Afrin 0.05% Nasal Harwood] 2 spray EA NOSTRIL BID PRN 03/04/19 [History] Acetaminophen Tab [Tylenol Tab] 650 mg PO Q4H PRN #30 tablet 03/10/19 [Rx] Bisacodyl [Dulcolax] 5 mg PO DAILY PRN #10 tablet. 03/10/19 [Rx] Omeprazole 40 mg PO DAILY #30 cap 03/10/19 [Rx] Ondansetron Odt [Zofran Odt] 4 mg PO Q8HR PRN #9 tab 03/10/19 [Rx] Simethicone 40 mg/0.6 ml Drops [Mylicon Drops] 40 mg PO PCHS PRN #30 ml 03/10/19 [Rx] Follow up Appointment(s)/Referral(s): [facility] [[facility]-STAFF] - 03/13/19 Activity/Diet/Wound Care/Special Instructions: Tylenol as needed for pain. BREAK TABLETS IN HALF OR DISSOLVE IN WATER BEFORE TAKING No lifting over 4 pounds You may shower. No soaking or tub baths Very light activity until you are reevaluated at your follow up appointment with your surgeon Liquid diet per bariatric dietitian instructions (see handouts given to you)
[2019-03-10 12:02] LABS: Glucose,Whole Blood 100 mg/dL (75-99)
[2019-03-10 13:46] VITALS: BMI 61.4
== END 2019-03-10 14:28 | disposition home or self-care (01) | DRG 621 ==
LOC: 2ORMAIN 10:32 → 4SSUR 14:38
PROVIDERS: ADMIT Surgery Plastic and Reconstructive Surgery; ATTEND Surgery Plastic and Reconstructive Surgery
PROC: 8E0W4CZ Robotic Assisted Procedure of Trunk Region, Percutaneous Endoscopic Approach (ICD-10-PCS; 2019-03-09)
PROC: 0DB64Z3 Excision of Stomach, Percutaneous Endoscopic Approach, Vertical (ICD-10-PCS; principal; 2019-03-09 12:10)
DX: E66.01 Morbid (severe) obesity due to excess calories (principal); Z68.44 Body mass index [BMI] 60.0-69.9, adult; I11.9 Hypertensive heart disease without heart failure; G47.33 Obstructive sleep apnea (adult) (pediatric); M17.0 Bilateral primary osteoarthritis of knee; M47.9 Spondylosis, unspecified; K74.60 Unspecified cirrhosis of liver; M19.072 Primary osteoarthritis, left ankle and foot; M19.071 Primary osteoarthritis, right ankle and foot; R60.0 Localized edema; M16.0 Bilateral primary osteoarthritis of hip; I87.2 Venous insufficiency (chronic) (peripheral); K21.9 Gastro-esophageal reflux disease without esophagitis; E55.9 Vitamin D deficiency, unspecified; Z98.1 Arthrodesis status; Z79.899 Other long term (current) drug therapy; Z87.891 Personal history of nicotine dependence; Z88.8 Allergy status to other drugs, medicaments and biological substances
CPT/HCPCS: 74240; 80051; 82310; 82565; 83735; 84100; 84520; 85025; 86850; 86900; 86901; 88307; 94640; 94760; 94762

== ENCOUNTER → 2019-03-13 | Outpatient (CLI) | payer MEDICARE, OTHER ==
[2019-03-13 10:04] LABS: Glucose,Whole Blood 102 mg/dL (75-99)
--- NOTE | 2019-03-13 11:27 | P.PN ---
Subjective Progress Note Date: 03/13/19 DATE OF SERVICE: 03/13/2019 CHIEF COMPLAINT: Status post sleeve gastrectomy HISTORY OF PRESENT ILLNESS: Kartik Andersen is a 68-year-old male status post sleeve gastrectomy, 03/09/19. He is POD 4. He is doing very well. He is passing flatus and having bowel movements. Blood sugars has been under 150. He is off all diabetic medications. He was asked to resume his omeprazole. He is ambulating further than he has before. At height of 5 feet 9.5 inches, his ideal body weight is 168 pounds. He highest weight was 428 pounds. Today he comes in 394 pounds from 421 pounds 1 month ago. He has lost 33 pounds in 1 month. His body mass index is down from 62.3 to 57.5. He is 226 pounds overweight. Lifetime weight loss is 33 pounds. Percent excess weight loss is 13%. PHYSICAL EXAM: VITAL SIGNS: Height 5 foot 9.5 inches, weight 394 pounds. BMI 57.5 Vital Signs Temp 98.1 F 03/13/19 11:25 Pulse 67 03/13/19 11:25 Resp BP 158/84 03/13/19 11:25 Pulse Ox GENERAL: Well-developed in no acute distress. HEENT: No scleral icterus. Extraocular movements grossly intact. Hears conversational speech. No nasal drainage. NECK: Supple without lymphadenopathy. CHEST: Nonlabored respirations with equal bilateral excursions. CARDIOVASCULAR: Regular rate and regular rhythm. Distal 2+ pulses. ABDOMEN: Obese, soft. No signs of infection on exam. Dressing discontinued. MUSCULOSKELETAL: No clubbing, cyanosis. 1+ pitting edema NEURO: No focal or lateralizing signs. Cranial nerves 2 through 12 grossly within normal limits. PSYCH: Appropriate affect. Alert and oriented to person, place and time. SKIN: Good skin turgor. Well perfused. ASSESSMENT: 1. Morbid obesity due to excess calories 2. Body mass index of 62.3 to 57.5 3. Osteoarthritis of the knees. 4. Hypertensive heart disease. 5. Osteoarthritis of the hips 6. Bilateral lower extremity edema 7. Obstructive sleep apnea 8. Venous insufficiency 9. Osteoarthritis of the lower back. 10. Vitamin D deficiency 11. Elevated Hgb A1C with new diagnosis of diabetes type 2, resolved 12. Iron deficiency anemia 13. Vitamin A deficiency 14. Erosive esophagitis 15. Status post sleeve gastrectomy PLAN: 1. Recommend follow-up in 1 week for transition to a stage III diet and dietitian visit. Objective - Labs Labs: Abnormal Lab Results - Last 24 Hours (Table) 03/13/19 Range/Units 09:58 POC Glucose (mg/dL) 102 H (75-99) mg/dL
[2019-03-13 11:33] VITALS: BP 158/84; PULSE 67; TEMP 98.1; BMI 57.4
== END | disposition home or self-care (01) ==
LOC: BARWHC3 09:34
PROVIDERS: ATTEND Surgery Plastic and Reconstructive Surgery
DX: Z48.815 Encounter for surgical aftercare following surgery on the digestive system (principal); E66.01 Morbid (severe) obesity due to excess calories; M17.0 Bilateral primary osteoarthritis of knee; I11.9 Hypertensive heart disease without heart failure; M16.0 Bilateral primary osteoarthritis of hip; G47.33 Obstructive sleep apnea (adult) (pediatric); I87.2 Venous insufficiency (chronic) (peripheral); E55.9 Vitamin D deficiency, unspecified; D50.9 Iron deficiency anemia, unspecified; E50.9 Vitamin A deficiency, unspecified; K22.10 Ulcer of esophagus without bleeding; R60.0 Localized edema; Z98.84 Bariatric surgery status; Z68.43 Body mass index [BMI] 50.0-59.9, adult
CPT/HCPCS: 99211

== ENCOUNTER → 2019-03-18 | Outpatient (CLI) | payer MEDICARE, OTHER ==
[2019-03-18 14:57] VITALS: BP 162/83; PULSE 52; RESP 16; TEMP 98.4; BMI 56.9
--- NOTE | 2019-03-18 15:46 | P.PN ---
Subjective Progress Note Date: 03/18/19 DATE OF SERVICE: 03/18/2019 CHIEF COMPLAINT: Status post sleeve gastrectomy HISTORY OF PRESENT ILLNESS: Kartik Andersen is a 68-year-old male status post sleeve gastrectomy, 03/09/19. He is 1 week out. He is doing very well. He is tolerating diet. He's lost 30 pounds in 1 month. He is ambulating more frequently. He barely uses his walker anymore. No reports of fevers or chills. At height of 5 feet 9.5 inches, his ideal body weight is 168 pounds. He highest weight was 428 pounds. Today he comes in 390 pounds from 394 pounds 1 week ago. He has lost 4 pounds in 1 week. His body mass index is down from 62.3 to 56.9. He is 222 pounds overweight. Lifetime weight loss is 38 pounds. Percent excess weight loss is 15%. PHYSICAL EXAM: VITAL SIGNS: Height 5 foot 9.5 inches, weight 390 pounds. BMI 56.9 Vital Signs Temp 98.4 F 03/18/19 14:53 Pulse 52 L 03/18/19 14:53 Resp 16 03/18/19 14:53 BP 162/83 03/18/19 14:53 Pulse Ox GENERAL: Well-developed in no acute distress. HEENT: No scleral icterus. Extraocular movements grossly intact. Hears conversational speech. No nasal drainage. NECK: Supple without lymphadenopathy. CHEST: Nonlabored respirations with equal bilateral excursions. CARDIOVASCULAR: Regular rate and regular rhythm. Distal 2+ pulses. ABDOMEN: Obese, soft. No signs of infection on exam. Dressing discontinued. MUSCULOSKELETAL: No clubbing, cyanosis. Trace pitting edema. NEURO: No focal or lateralizing signs. Cranial nerves 2 through 12 grossly within normal limits. PSYCH: Appropriate affect. Alert and oriented to person, place and time. SKIN: Good skin turgor. Well perfused. ASSESSMENT: 1. Morbid obesity due to excess calories 2. Body mass index of 62.3 to 56.9 3. Osteoarthritis of the knees. 4. Hypertensive heart disease. 5. Osteoarthritis of the hips 6. Bilateral lower extremity edema 7. Obstructive sleep apnea 8. Venous insufficiency 9. Osteoarthritis of the lower back. 10. Vitamin D deficiency 11. Elevated Hgb A1C with new diagnosis of diabetes type 2, resolved 12. Iron deficiency anemia 13. Vitamin A deficiency 14. Erosive esophagitis 15. Status post sleeve gastrectomy PLAN: 1. Follow up in 2-1/2 weeks March 31 2. Continue to monitor blood sugars Objective - Vital Signs Vital signs: Vital Signs Temp 98.4 F 03/18/19 14:53 Pulse 52 L 03/18/19 14:53 Resp 16 03/18/19 14:53 BP 162/83 03/18/19 14:53 Pulse Ox Intake & Output 03/17/19 03/18/19 03/18/19 18:59 06:59 18:59 Weight 177.355 kg
== END | disposition home or self-care (01) ==
LOC: BARWHC3 14:32
PROVIDERS: ATTEND Surgery Plastic and Reconstructive Surgery
DX: Z48.815 Encounter for surgical aftercare following surgery on the digestive system (principal); E66.01 Morbid (severe) obesity due to excess calories; M17.0 Bilateral primary osteoarthritis of knee; M47.816 Spondylosis without myelopathy or radiculopathy, lumbar region; I11.9 Hypertensive heart disease without heart failure; M16.0 Bilateral primary osteoarthritis of hip; R60.0 Localized edema; G47.33 Obstructive sleep apnea (adult) (pediatric); I87.2 Venous insufficiency (chronic) (peripheral); E55.9 Vitamin D deficiency, unspecified; D50.9 Iron deficiency anemia, unspecified; E50.9 Vitamin A deficiency, unspecified; K20.8 Other esophagitis; Z68.43 Body mass index [BMI] 50.0-59.9, adult; Z98.84 Bariatric surgery status
CPT/HCPCS: 97803; G0463; 99211

== ENCOUNTER → 2019-04-01 | Outpatient (CLI) | payer MEDICARE, OTHER ==
--- NOTE | 2019-04-01 15:53 | P.PN ---
Subjective Progress Note Date: 04/01/19 DATE OF SERVICE: 04/01/2019 CHIEF COMPLAINT: Status post sleeve gastrectomy HISTORY OF PRESENT ILLNESS: Kartik Andersen is a 68-year-old male status post sleeve gastrectomy, 03/09/19. He is 1 month out. He comes in with swelling of his legs. He has lost 33 pounds in 3 weeks. He was on a water pill before. He is 3 weeks out from his surgery and is getting 90+ grams of protein. At height of 5 feet 9.5 inches, his ideal body weight is 168 pounds. He highest weight was 428 pounds. Today he comes in 388 pounds from 390 pounds 2 weeks ago. He has lost 2 pounds in 2 weeks. His body mass index is down from 62.3 to 56.6. He is 220 pounds overweight. Lifetime weight loss is 40 pounds. Percent excess w eight loss is 15%. PHYSICAL EXAM: VITAL SIGNS: Height 5 foot 9.5 inches, weight 388 pounds. BMI 56.6 Vital Signs Temp 98.4 F 04/01/19 15:27 Pulse 71 04/01/19 15:27 Resp 16 04/01/19 15:27 BP 176/82 04/01/19 15:27 Pulse Ox GENERAL: Well-developed in no acute distress. HEENT: No scleral icterus. Extraocular movements grossly intact. Hears conversational speech. No nasal drainage. NECK: Supple without lymphadenopathy. CHEST: Nonlabored respirations with equal bilateral excursions. CARDIOVASCULAR: Regular rate and regular rhythm. Distal 2+ pulses. ABDOMEN: Obese, soft. No signs of infection on exam. Dressing discontinued. MUSCULOSKELETAL: No clubbing, cyanosis. 1+ pitting edema. NEURO: No focal or lateralizing signs. Cranial nerves 2 through 12 grossly within normal limits. PSYCH: Appropriate affect. Alert and oriented to person, place and time. SKIN: Good skin turgor. Well perfused. ASSESSMENT: 1. Morbid obesity due to excess calories 2. Body mass index of 62.3 to 56.6 3. Osteoarthritis of the knees. 4. Hypertensive heart disease. 5. Osteoarthritis of the hips 6. Bilateral lower extremity edema 7. Obstructive sleep apnea 8. Venous insufficiency 9. Osteoarthritis of the lower back. 10. Vitamin D deficiency 11. Elevated Hgb A1C with new diagnosis of diabetes type 2, resolved 12. Iron deficiency anemia 13. Vitamin A deficiency 14. Erosive esophagitis 15. Status post sleeve gastrectomy PLAN: 1. Recommend seeing her PCP for water pill for lower extremity edema 2. Recommend bariatric labs 3. Follow up in 3 months, June 2019 4. Salt restriction advised for edema 5. May exercise for next Saturday 6. Start multivitamin Objective - Vital Signs Vital signs: Vital Signs Temp 98.4 F 04/01/19 15:27 Pulse 71 04/01/19 15:27 Resp 16 04/01/19 15:27 BP 176/82 04/01/19 15:27 Pulse Ox Intake & Output 03/31/19 04/01/19 04/01/19 18:59 06:59 18:59 Weight 176.447 kg
== END | disposition home or self-care (01) ==
CPT/HCPCS: 97803; G0463; 99211

== ENCOUNTER → 2019-04-01 | Outpatient (CLI) | payer MEDICARE, OTHER ==
[2019-04-01 17:10] LABS: HCT 42.7 % (39.0-53.0); HGB 13.4 gm/dL (13.0-17.5); Hypochromasia Slight; MCH 26.8 pg (25.0-35.0); MCHC 31.5 g/dL (31.0-37.0); MCV 85.2 fL (80.0-100.0); Mean Platelet Volume 9.3; Platelet Count 165 k/uL (150-450); RDW 15.5 % (11.5-15.5); WBC 6.9 k/uL (3.8-10.6)
[2019-04-01 17:16] LABS: Partial Thromboplastin Time 30.2 sec (22.0-30.0); Prothrombin Time 10.7 sec (9.0-12.0)
[2019-04-02 00:40] LABS: Iron Saturation 13.13 (15.00-50.00)
[2019-04-02 00:46] LABS: African American GFR (CKD) 101.4 (60.0-200.0); Albumin 4.2 g/dL (3.80-4.90); Albumin/Globulin Ratio 1.62 (1.60-3.17); Calcium 9.3 mg/dL (8.7-10.3); Chol/HDL Ratio 4.59; Globulin 2.6 g/dL (1.6-3.3); LDL Cholesterol,Calculated 127.2 mg/dL (0.0-131.0); Magnesium 1.9 mg/dL (1.5-2.4); Phosphorus 2.9 mg/dL (2.4-5.1); Potassium 4.4 mmol/L (3.5-5.5); Total Bilirubin 0.4 mg/dL (0.3-1.2); Total Protein 6.8 g/dL (6.2-8.2); VLDL Calculation 19.8 mg/dL (5.00-40.00)
[2019-04-02 00:49] LABS: Vitamin D 25 Hydroxy 19.4 ng/mL (30.0-100.0)
[2019-04-02 01:16] LABS: Folate, Serum 12.1 ng/mL
[2019-04-02 02:04] LABS: Hemoglobin A1C 5.8 % (4.0-6.0)
[2019-04-02 14:43] LABS: Zinc, Serum 56 ug/dL (60-130)
[2019-04-02 15:12] LABS: Vitamin A 24 ug/dL (38-106)
[2019-04-07 17:06] LABS: Selenium 99 mcg/L (63-160)
[2019-04-13 18:26] LABS: Vit B1(Thiamine) 59 ug/L (38-122)
== END | disposition home or self-care (01) ==
LOC: LABWHC1 16:10
PROVIDERS: ATTEND Surgery Plastic and Reconstructive Surgery
DX: E66.01 Morbid (severe) obesity due to excess calories (principal); E21.1 Secondary hyperparathyroidism, not elsewhere classified; D50.9 Iron deficiency anemia, unspecified; K90.9 Intestinal malabsorption, unspecified; E55.9 Vitamin D deficiency, unspecified; K74.1 Hepatic sclerosis; N19 Unspecified kidney failure; K50.90 Crohn's disease, unspecified, without complications; E89.1 Postprocedural hypoinsulinemia
CPT/HCPCS: 84255; 84134; 84425; 80061; 80053; 82607; 82728; 82525; 82746; 83540; 83550; 83735; 84100; 84443; 84590; 84630; 85027; 85610; 85730; 82306; 83970; 83036; 97803; 36415; G0463; 99211

== ENCOUNTER → 2019-06-17 | Outpatient (CLI) | payer MEDICARE, OTHER ==
[2019-06-17 13:05] VITALS: BP 145/86; PULSE 77; TEMP 97.9; BMI 51.6
--- NOTE | 2019-06-17 13:18 | P.PN ---
Subjective Progress Note Date: 06/17/19 Protein intake is less than 90 grams daily. He has lost 70 pounds in 4 months. He journals his foods. He drinks 34 oz. He went hunting and scratched. ABDOMEN: MS: 3+ edema ASSESSMENT: 1. Morbid obesity PLAN: 1. Journal, call calculate carbs and protein, carbs less than 50 g and protein 90 g 2. Follow up 3. Bariatric labs Objective - Vital Signs Vital signs: Vital Signs Temp 97.9 F 06/17/19 12:56 Pulse 77 06/17/19 12:56 Resp BP 145/86 06/17/19 12:56 Pulse Ox Intake & Output 06/16/19 06/17/19 06/17/19 18:59 06:59 18:59 Weight 161.025 kg
[2019-06-17 15:01] LABS: HCT 44.9 % (39.0-53.0); HGB 14.3 gm/dL (13.0-17.5); MCH 28.3 pg (25.0-35.0); MCHC 31.9 g/dL (31.0-37.0); MCV 88.8 fL (80.0-100.0); Mean Platelet Volume 8.5; Platelet Count 151 k/uL (150-450); RBC 5.06 m/uL (4.30-5.90); RDW 14.8 % (11.5-15.5); WBC 8.4 k/uL (3.8-10.6)
[2019-06-17 15:04] LABS: Partial Thromboplastin Time 31.9 sec (22.0-30.0); Prothrombin Time 10.9 sec (9.0-12.0)
[2019-06-17 20:04] LABS: % Iron Saturation 17.92 (15.00-50.00); African American GFR (CKD) 89.2 (60.0-200.0); Albumin 4.3 g/dL (3.80-4.90); Albumin/Globulin Ratio 1.59 (1.60-3.17); Calcium 9.4 mg/dL (8.7-10.3); Chol/HDL Ratio 4.4; Globulin 2.7 g/dL (1.6-3.3); LDL Cholesterol,Calculated 127.8 mg/dL (0.0-131.0); Magnesium 1.8 mg/dL (1.5-2.4); Phosphorus 3.1 mg/dL (2.4-5.1); Potassium 4.7 mmol/L (3.5-5.5); Total Bilirubin 0.6 mg/dL (0.3-1.2); VLDL Calculation 15.2 mg/dL (5.00-40.00)
[2019-06-17 20:13] LABS: Ferritin 366.5 ng/mL (22.0-322.0)
[2019-06-17 20:19] LABS: Folate, Serum 15.3 ng/mL
[2019-06-17 21:54] LABS: Hemoglobin A1C 5.2 % (4.0-6.0)
[2019-06-18 11:20] LABS: Zinc, Serum 68 ug/dL (60-130)
[2019-06-18 15:09] LABS: Vitamin A 21 ug/dL (38-106)
[2019-06-19 11:28] LABS: Vit B1(Thiamine) 65 ug/L (38-122)
== END | disposition home or self-care (01) ==
LOC: BARWHC3 12:30
PROVIDERS: ATTEND Surgery Plastic and Reconstructive Surgery
DX: E66.01 Morbid (severe) obesity due to excess calories (principal); Z68.43 Body mass index [BMI] 50.0-59.9, adult; E21.1 Secondary hyperparathyroidism, not elsewhere classified; D50.9 Iron deficiency anemia, unspecified; K90.9 Intestinal malabsorption, unspecified; K76.9 Liver disease, unspecified; N19 Unspecified kidney failure; K50.90 Crohn's disease, unspecified, without complications; E55.9 Vitamin D deficiency, unspecified; E89.1 Postprocedural hypoinsulinemia
CPT/HCPCS: 84255; 84134; 84425; 80061; 80053; 82607; 82728; 82525; 82746; 83540; 83550; 83735; 84100; 84443; 84590; 84630; 85027; 85610; 85730; 82306; 83970; 83036; 97803; G0463; 99211

== ENCOUNTER → 2019-09-23 | Outpatient (CLI) | payer MEDICARE, OTHER ==
--- NOTE | 2019-09-23 13:20 | P.PN ---
Subjective Progress Note Date: 09/23/19 DATE OF SERVICE: 09/23/2019 CHIEF COMPLAINT: Status post sleeve gastrectomy HISTORY OF PRESENT ILLNESS: Kartik Andersen is a 68-year-old male status post sleeve gastrectomy, 03/09/19. He is 6 months out. No reports of gastroesophageal reflux disease. He is off his CPAP machine as his sleep apnea is resolved. He has improvement of his joints. He had pain along the left knee now improved. He was 450 pounds at his highest. He has cut back on his carbohydrates. He reports retaining too much water. He is no longer using walking devices. He has bilateral venous stasis disease. He reports minimal sleep for overactive mind. At height of 5 feet 9.5 inches, his ideal body weight is 168 pounds. He highest weight was 450 pounds, BMI 65.6. Today he comes in 332 pounds from 354 pounds, 3 months ago. He has lost 22 pounds in 3 months. His body mass index is down from 65.6 to 48.5. Lifetime weight loss is 118 pounds. Percent excess weight loss is 42%. She is 164 pounds overweight. PHYSICAL EXAM: VITAL SIGNS: Height 5 foot 9.5 inches, weight 332 pounds. BMI 48.5 Vital Signs Temp 98.1 F 09/23/19 13:17 Pulse 61 09/23/19 13:17 Resp BP 146/84 09/23/19 13:17 Pulse Ox GENERAL: Well-developed in no acute distress. HEENT: No scleral icterus. Extraocular movements grossly intact. Hears conversational speech. No nasal drainage. NECK: Supple without lymphadenopathy. CHEST: Nonlabored respirations with equal bilateral excursions. CARDIOVASCULAR: Regular rate and regular rhythm. Distal 2+ pulses. ABDOMEN: Obese, soft. Nontender. No hernia. MUSCULOSKELETAL: No clubbing, cyanosis. NEURO: No focal or lateralizing signs. Cranial nerves 2 through 12 grossly within normal limits. PSYCH: Appropriate affect. Alert and oriented to person, place and time. SKIN: Good skin turgor. Well perfused. ASSESSMENT: 1. Morbid obesity due to excess calories 2. Body mass index of 62.3 to 48.5 3. Osteoarthritis of the knees. 4. Hypertensive heart disease. 5. Osteoarthritis of the hips 6. Bilateral lower extremity edema 7. Obstructive sleep apnea 8. Venous insufficiency 9. Osteoarthritis of the lower back. 10. Vitamin D deficiency 11. Diabetes mellitus type 2 12. Iron deficiency anemia 13. Vitamin A deficiency 14. Erosive esophagitis 15. Status post sleeve gastrectomy 16. Dietary surveillance and counseling PLAN: 1. Recommend bariatric labs. 2. Recommend skin care reviewed including Tea tree oil Dr green and lorenzo butter for his venous stasis disease. Laboratory Last Values WBC 8.2 k/uL (3.8-10.6) 09/23/19 14:11 RBC 5.20 m/uL (4.30-5.90) 09/23/19 14:11 Hgb 15.3 gm/dL (13.0-17.5) 09/23/19 14:11 Hct 46.8 % (39.0-53.0) 09/23/19 14:11 MCV 90.1 fL (80.0-100.0) 09/23/19 14:11 MCH 29.5 pg (25.0-35.0) 09/23/19 14:11 MCHC 32.7 g/dL (31.0-37.0) 09/23/19 14:11 RDW 13.1 % (11.5-15.5) 09/23/19 14:11 Plt Count 155 k/uL (150-450) 09/23/19 14:11 PT 11.1 sec (9.0-12.0) 09/23/19 14:11 INR 1.1 (<1.2) 09/23/19 14:11 APTT 30.0 sec (22.0-30.0) 09/23/19 14:11 Sodium 142 mmol/L (135-145) 09/23/19 14:11 Potassium 4.3 mmol/L (3.5-5.5) 09/23/19 14:11 Chloride 102 mmol/L (96-109) 09/23/19 14:11 Carbon Dioxide 32.8 mmol/L (21.6-31.8) H 09/23/19 14:11 Anion Gap 7.20 mmol/L (4.00-12.00) 09/23/19 14:11 BUN 21.0 mg/dL (9.0-27.0) 09/23/19 14:11 Creatinine 1.0 mg/dL (0.6-1.5) 09/23/19 14:11 Est GFR (CKD-EPI)AfAm 89.2 (60.0-200.0) 09/23/19 14:11 Est GFR (CKD-EPI)NonAf 77.0 (60.0-200.0) 09/23/19 14:11 BUN/Creatinine Ratio 21.00 Ratio (12.00-20.00) H 09/23/19 14:11 Glucose 102 mg/dL (70-110) 09/23/19 14:[address] Glu mg/dL 105 09/23/19 14:11 Hemoglobin A1c 5.3 % (4.0-6.0) 09/23/19 14:11 Calcium 9.6 mg/dL (8.7-10.3) 09/23/19 14:11 Phosphorus 3.2 mg/dL (2.4-5.1) 09/23/19 14:11 Magnesium 2.0 mg/dL (1.5-2.4) 09/23/19 14:11 Iron 80 ug/dL (65-175) 09/23/19 14:11 TIBC 338 ug/dL (228-460) 09/23/19 14:11 % Saturation 23.67 (15.00-50.00) 09/23/19 14:11 Ferritin 353.9 ng/mL (22.0-322.0) H 09/23/19 14:11 Total Bilirubin 0.7 mg/dL (0.3-1.2) 09/23/19 14:11 AST 35 U/L (14-35) 09/23/19 14:11 ALT 33 U/L (10-49) 09/23/19 14:11 Alkaline Phosphatase 111 U/L (41-126) 09/23/19 14:11 Total Protein 7.1 g/dL (6.2-8.2) 09/23/19 14:11 Albumin 4.40 g/dL (3.80-4.90) 09/23/19 14:11 Globulin 2.7 g/dL (1.6-3.3) 09/23/19 14:11 Albumin/Globulin Ratio 1.63 g/dL (1.60-3.17) 09/23/19 14:11 Prealbumin 17.0 mg/dL (18.0-42.0) L 09/23/19 14:11 Triglycerides 86.0 mg/dL (0.0-149.0) 09/23/19 14:11 Cholesterol 211 mg/dL (0-200) H 09/23/19 14:11 LDL Cholesterol, Calc 148.8 mg/dL (0.0-131.0) H 09/23/19 14:11 VLDL Cholesterol, Calc 17.20 mg/dL (5.00-40.00) 09/23/19 14:11 HDL Cholesterol 45.0 mg/dL (40.0-60.0) 09/23/19 14:11 Cholesterol/HDL Ratio 4.69 09/23/19 14:11 Vitamin A 33 ug/dL (38-106) L 09/23/19 14:11 Vitamin B1 62 ug/L (38-122) 09/23/19 14:11 Vitamin B12 546.0 pg/mL (200.0-944.0) 09/23/19 14:11 Vitamin D 25-Hydroxy 19.7 ng/mL (30.0-100.0) L 09/23/19 14:11 Folate 13.4 ng/mL 09/23/19 14:11 TSH 0.900 uIU/mL (0.350-5.500) 09/23/19 14:11 PTH Intact 51.6 pg/mL (14.0-72.0) 09/23/19 14:11 Copper 1255 ug/L (665-1480) 09/23/19 14:11 Selenium 100 mcg/L (63-160) 09/23/19 14:11 Zinc 70 ug/dL (60-130) 09/23/19 14:11 Pre-albumin is low Vitamin D is low Objective - Labs CBC & Chem 7: 09/23/19 14:11 09/23/19 14:11
[2019-09-23 13:22] VITALS: BP 146/84; PULSE 61; TEMP 98.1; BMI 48.4
[2019-09-23 15:15] LABS: HCT 46.8 % (39.0-53.0); HGB 15.3 gm/dL (13.0-17.5); MCH 29.5 pg (25.0-35.0); MCHC 32.7 g/dL (31.0-37.0); MCV 90.1 fL (80.0-100.0); Mean Platelet Volume 9.7; Platelet Count 155 k/uL (150-450); RDW 13.1 % (11.5-15.5); WBC 8.2 k/uL (3.8-10.6)
[2019-09-23 15:20] LABS: INR 1.1 (<1.2); Prothrombin Time 11.1 sec (9.0-12.0)
[2019-09-23 18:38] LABS: % Iron Saturation 23.67 (15.00-50.00); African American GFR (CKD) 89.2 (60.0-200.0); Albumin 4.4 g/dL (3.80-4.90); Albumin/Globulin Ratio 1.63 (1.60-3.17); Anion Gap 7.2 mmol/L (4.00-12.00); Calcium 9.6 mg/dL (8.7-10.3); Carbon Dioxide 32.8 mmol/L (21.6-31.8); Chol/HDL Ratio 4.69; Globulin 2.7 g/dL (1.6-3.3); LDL Cholesterol,Calculated 148.8 mg/dL (0.0-131.0); Phosphorus 3.2 mg/dL (2.4-5.1); Potassium 4.3 mmol/L (3.5-5.5); Total Bilirubin 0.7 mg/dL (0.3-1.2); Total Protein 7.1 g/dL (6.2-8.2); VLDL Calculation 17.2 mg/dL (5.00-40.00)
[2019-09-23 18:56] LABS: Ferritin 353.9 ng/mL (22.0-322.0); Folate, Serum 13.4 ng/mL
[2019-09-24 02:10] LABS: Hemoglobin A1C 5.3 % (4.0-6.0)
[2019-09-24 13:30] LABS: Zinc, Serum 70 ug/dL (60-130)
[2019-09-25 06:35] LABS: Vitamin A 33 ug/dL (38-106)
[2019-09-25 13:01] LABS: Vit B1(Thiamine) 62 ug/L (38-122)
[2019-09-26 21:05] LABS: Selenium 100 mcg/L (63-160)
== END | disposition home or self-care (01) ==
LOC: BARWHC3 12:25
PROVIDERS: ATTEND Surgery Plastic and Reconstructive Surgery
DX: Z48.815 Encounter for surgical aftercare following surgery on the digestive system (principal); E66.01 Morbid (severe) obesity due to excess calories; M17.0 Bilateral primary osteoarthritis of knee; M16.0 Bilateral primary osteoarthritis of hip; I11.9 Hypertensive heart disease without heart failure; R60.0 Localized edema; G47.33 Obstructive sleep apnea (adult) (pediatric); I87.2 Venous insufficiency (chronic) (peripheral); E55.9 Vitamin D deficiency, unspecified; E11.9 Type 2 diabetes mellitus without complications; D50.9 Iron deficiency anemia, unspecified; I87.8 Other specified disorders of veins; E50.9 Vitamin A deficiency, unspecified; K22.10 Ulcer of esophagus without bleeding; Z68.42 Body mass index [BMI] 45.0-49.9, adult; Z98.84 Bariatric surgery status; Z71.3 Dietary counseling and surveillance; E21.1 Secondary hyperparathyroidism, not elsewhere classified; E89.1 Postprocedural hypoinsulinemia; K90.9 Intestinal malabsorption, unspecified; K74.1 Hepatic sclerosis; N19 Unspecified kidney failure; K50.90 Crohn's disease, unspecified, without complications
CPT/HCPCS: 84255; 84134; 84425; 80061; 80053; 82607; 82728; 82525; 82746; 83540; 83550; 83735; 84100; 84443; 84590; 84630; 85027; 85610; 85730; 82306; 83970; 83036; 97803; 36415; G0463; 99211

== ENCOUNTER → 2020-01-13 | Outpatient (CLI) | payer MEDICARE, OTHER ==
[2020-01-13 13:53] VITALS: BP 141/89; PULSE 77; RESP 16; TEMP 97.8; BMI 47.2
--- NOTE | 2020-01-13 14:14 | P.PN ---
Subjective Progress Note Date: 01/13/20 He is off CPAP machine. He has lost over 100 pounds. He reports severe panniculitis. He severe panniculitis. He has venous stasis disease. Labs due. Nystatin powder for panniculitis. Pre Press Proofer visit. He uses Zinc oxide for help. Labs reviewed with low Vit A and D. Vitamin D prescribed. Pannus weight of 20 pounds. Hang over 10 cm. Objective - Vital Signs Vital signs: Vital Signs Temp 97.8 F 01/13/20 13:50 Pulse 77 01/13/20 13:50 Resp 16 01/13/20 13:50 BP 141/89 01/13/20 13:50 Pulse Ox Intake & Output 01/12/20 01/13/20 01/13/20 18:59 06:59 18:59 Weight 145.15 kg
[2020-01-13 15:05] LABS: HCT 48.9 % (39.0-53.0); HGB 15.3 gm/dL (13.0-17.5); MCH 28.5 pg (25.0-35.0); MCHC 31.3 g/dL (31.0-37.0); Mean Platelet Volume 9.3; Platelet Count 129 k/uL (150-450); RBC 5.38 m/uL (4.30-5.90); RDW 13.7 % (11.5-15.5)
[2020-01-13 15:13] LABS: INR 1.1 (<1.2); Partial Thromboplastin Time 28.2 sec (22.0-30.0); Prothrombin Time 10.9 sec (9.0-12.0)
[2020-01-14 00:25] LABS: % Iron Saturation 23.22 (15.00-50.00); African American GFR (CKD) 88.6 (60.0-200.0); Albumin 4.3 g/dL (3.80-4.90); Albumin/Globulin Ratio 1.54 (1.60-3.17); Anion Gap 9.4 mmol/L (4.00-12.00); Calcium 9.4 mg/dL (8.7-10.3); Carbon Dioxide 27.6 mmol/L (21.6-31.8); Chol/HDL Ratio 4.31; Globulin 2.8 g/dL (1.6-3.3); LDL Cholesterol,Calculated 146.4 mg/dL (0.0-131.0); Magnesium 1.8 mg/dL (1.5-2.4); Non-African American GFR(CKD) 76.5 (60.0-200.0); Phosphorus 3.3 mg/dL (2.4-5.1); Potassium 4.4 mmol/L (3.5-5.5); Total Bilirubin 0.7 mg/dL (0.3-1.2); Total Protein 7.1 g/dL (6.2-8.2); VLDL Calculation 15.6 mg/dL (5.00-40.00)
[2020-01-14 00:48] LABS: Hemoglobin A1C 5.1 % (4.0-6.0)
[2020-01-14 10:51] LABS: Zinc, Serum 74 ug/dL (60-130)
[2020-01-15 07:05] LABS: Vit B1(Thiamine) 61 ug/L (38-122)
[2020-01-15 07:13] LABS: Vitamin A 29 ug/dL (38-106)
== END | disposition home or self-care (01) ==
LOC: BARWHC3 13:24
PROVIDERS: ATTEND Surgery Plastic and Reconstructive Surgery
DX: E66.01 Morbid (severe) obesity due to excess calories (principal); M79.3 Panniculitis, unspecified; I87.8 Other specified disorders of veins; Z68.42 Body mass index [BMI] 45.0-49.9, adult; Z79.899 Other long term (current) drug therapy; E21.1 Secondary hyperparathyroidism, not elsewhere classified; E89.1 Postprocedural hypoinsulinemia; D50.9 Iron deficiency anemia, unspecified; K90.9 Intestinal malabsorption, unspecified; E55.9 Vitamin D deficiency, unspecified; K74.1 Hepatic sclerosis; N19 Unspecified kidney failure; K50.90 Crohn's disease, unspecified, without complications
CPT/HCPCS: 84255; 84134; 84425; 80061; 80053; 82607; 82728; 82525; 82746; 83540; 83550; 83735; 84100; 84443; 84590; 84630; 85027; 85610; 85730; 82306; 83970; 83036; 97803; G0463; 99211

== ENCOUNTER → 2020-06-15 | Outpatient (CLI) | payer MEDICARE, OTHER ==
--- NOTE | 2020-06-15 14:20 | P.PN ---
Subjective Progress Note Date: 06/15/20 DATE OF SERVICE: 06/15/2020 CHIEF COMPLAINT: Panniculitis HISTORY OF PRESENT ILLNESS: Kartik Andersen is a 69-year-old male status post sleeve gastrectomy, 03/09/19. He comes in with over 6 month history of severe chronic panniculitis uncontrolled with medicated cremes and powders including zinc oxide and nystatin powder. Separately, he comes in with 5 pound weight gain since his last visit. He reports eating roasted chicken including potato salad. He also reports severe lower back pain exacerbated by his pannus. He also reports challenges with his activities of daily living including bathing and clothing as a result of the sizable pannus. Despite his over 120 pound weight loss, his symptoms are persistent. He presents for evaluation of panniculectomy. At height of 5 feet 9.5 inches, his ideal body weight is 168 pounds. He highest weight was 450 pounds, BMI 65.6. Today he comes in 323 pounds from 316 pounds, 2 months ago. He has gained 6 pounds in 2 months. His body mass index is down from 65.6 to 47.1. Lifetime weight loss is 127 pounds. Percent excess weight loss is 45%. He is 155 pounds overweight. PAST MEDICAL HISTORY: 1. Morbid obesity due to excess calories 2. Body mass index of 62.3, initial 3. Osteoarthritis of the knees. 4. Hypertensive heart disease. 5. Osteoarthritis of the hips 6. Bilateral lower extremity edema 7. Obstructive sleep apnea 8. Venous insufficiency 9. Osteoarthritis of the lower back. 10. Vitamin D deficiency PAST SURGICAL HISTORY: 1. Lumbar fusion 2. Wrist surgary 3. Thumb surgery 4. Status post sleeve gastrectomy HOME MEDICATIONS: ALLERGIES: Home Medications Medication Instructions Recorded Confirmed Furosemide [Lasix] 20 mg PO DAILY 04/16/19 01/13/20 Alive Men's Multivitamin 1 tab PO DAILY 10/05/19 01/13/20 Vitamin A Acetate [Vitamin A] 10,000 units PO DAILY 10/05/19 01/13/20 Previous Rx's Medication Instructions Recorded Ergocalciferol [Vitamin D2 50,000 unit PO Q7D #12 cap 01/13/20 (DRISDOL)] Nystatin 100,000 Unit/gm Powd 1 applic TOPICAL BID #60 powder 01/13/20 [Mycostatin Powder] Allergies Allergy/AdvReac Type Severity Reaction Status Date / Time duloxetine [From Cymbalta] AdvReac Vomiting Verified 01/13/20 14:55 SOCIAL HISTORY: Past tobacco use. FAMILY HISTORY: No family history of ulcerative colitis disease or Crohn's disease. Family history of morbid obesity. No lupus in the family. No reports of stomach or esophageal cancer. REVIEW OF ORGAN SYSTEMS: CONSTITUTIONAL: At height of 5 feet 9.5 inches, his ideal body weight is 168 pounds. He highest weight was 450 pounds, BMI 65.6. HEENT: Denies any active troubles with vision or hearing. ENDOCRINE: No diabetes. No hypothyroidism. CARDIOVASCULAR: No past reports of palpitations or heart attacks or chest pain. Has severe venous stasis disease. RESPIRATORY: Has daytime somnolence. No asthma. Off CPAP machine GASTROINTESTINAL: Denies any bright red blood per rectum. No diarrhea. No constipation. MUSCULOSKELETAL: Has lower back pain and joint pain. Has osteoarthritis of the knees. NEURO: No headaches. No seizure disorders. PSYCH: No depression. No suicidal ideation. RHEUMATOLOGIC: No lupus. No rheumatoid arthritis. HEMATOLOGIC: Denies any abnormal bleeding or bruising. No personal history of DVTs. SKIN: Reports chronic panniculitis of the pannus poorly controlled with zinc oxide. No skin cancer. PHYSICAL EXAM: VITAL SIGNS: Height 5 foot 9.5 inches, weight 323 pounds. BMI 47.1 Vital Signs Temp 97.8 F 06/15/20 14:58 Pulse 61 06/15/20 14:58 Resp BP 176/67 06/15/20 14:58 Pulse Ox GENERAL: Well-developed in no acute distress. HEENT: No scleral icterus. Extraocular movements grossly intact. Hears conversational speech. No nasal drainage. NECK: Supple without lymphadenopathy. CHEST: Nonlabored respirations with equal bilateral excursions. CARDIOVASCULAR: Regular rate and regular rhythm. Distal 2+ pulses. ABDOMEN: Obese, soft. Erythema with moderate panniculitis. Pannus weight of 20+ pounds. Hang over pubis of 8+cm. MUSCULOSKELETAL: No clubbing, cyanosis. Has moderate bilateral lower extremity pitting edema, 1+ venous stasis changes. NEURO: No focal or lateralizing signs. Cranial nerves 2 through 12 grossly within normal limits. PSYCH: Appropriate affect. Alert and oriented to person, place and time. SKIN: Good skin turgor. Well perfused. LABS: Labs reviewed with low platelets ASSESSMENT: 1. Morbid obesity due to excess calories 2. Body mass index of 62.3 to 47.1 3. Osteoarthritis of the knees. 4. Hypertensive heart disease. 5. Osteoarthritis of the hips 6. Bilateral lower extremity edema 7. Obstructive sleep apnea, improved 8. Venous insufficiency 9. Osteoarthritis of the lower back. 10. Vitamin D deficiency 11. Diabetes mellitus type 2, now resolved, hemoglobin A1c 5.1 12. Iron deficiency anemia 13. Vitamin A deficiency 14. Erosive esophagitis 15. Status post sleeve gastrectomy 16. Severe panniculitis 17. Thrombocytopenia 18. Hypercholesterolemia PLAN: 1. Patient has persistent thrombocytopenia and may benefit from evaluation for hematology for persistent thrombocytopenia. 2. In the interim, continue with nystatin powder. 3. Recommend correction of nutritional deficiencies including vitamin D deficiency, vitamin A deficiency to improve wound healing. 4. Recommend panniculectomy for chronic panniculitis which has failed treatment despite over 6 months prescription therapy. Panniculectomy should correct his functional deficit including activities of daily living from a sizable pannus. 5. Recommend 2 week protein diet for optimal recovery 6. Risks of bleeding, needs for drains, flap failure, infection, need for further surgery were described. He is high risk for edie-operative complications with anticipated 10+ skin resection including pre-existing thrombocytopenia 7. Inpatient hospitalization also described 8. DVT prophylaxis. 9 Antibiotic prophylaxis 10. Extended recovery more than 6-8 weeks described including placement of MAIN drains for more than 2 weeks reviewed.
[2020-06-15 15:03] VITALS: BP 176/67; PULSE 61; TEMP 97.8; BMI 47.0
== END | disposition home or self-care (01) ==
LOC: BARWHC3 13:25
PROVIDERS: ATTEND Surgery Plastic and Reconstructive Surgery
DX: Z48.815 Encounter for surgical aftercare following surgery on the digestive system (principal); E66.01 Morbid (severe) obesity due to excess calories; M17.0 Bilateral primary osteoarthritis of knee; I11.9 Hypertensive heart disease without heart failure; M16.0 Bilateral primary osteoarthritis of hip; R60.0 Localized edema; G47.33 Obstructive sleep apnea (adult) (pediatric); I87.2 Venous insufficiency (chronic) (peripheral); E55.9 Vitamin D deficiency, unspecified; D50.9 Iron deficiency anemia, unspecified; E50.9 Vitamin A deficiency, unspecified; K22.10 Ulcer of esophagus without bleeding; M79.3 Panniculitis, unspecified; D69.6 Thrombocytopenia, unspecified; E78.00 Pure hypercholesterolemia, unspecified; Z68.42 Body mass index [BMI] 45.0-49.9, adult; Z87.891 Personal history of nicotine dependence; Z98.84 Bariatric surgery status; Z88.8 Allergy status to other drugs, medicaments and biological substances; Z98.890 Other specified postprocedural states
CPT/HCPCS: 99211

== ENCOUNTER → 2020-06-15 | Outpatient (CLI) | payer MEDICARE, OTHER ==
[2020-06-15 16:10] LABS: Basophils % (A) 0 %; Eosinophils # (A) 0.3 k/uL (0-0.7); Eosinophils % (A) 4 %; HCT 49.2 % (39.0-53.0); HGB 15.8 gm/dL (13.0-17.5); Lymphocytes # (A) 1.2 k/uL (1.0-4.8); Lymphocytes % (A) 17 %; MCH 29.7 pg (25.0-35.0); MCHC 32.2 g/dL (31.0-37.0); MCV 92.3 fL (80.0-100.0); Mean Platelet Volume 9.1; Monocytes # (A) 0.3 k/uL (0-1.0); Monocytes % (A) 5 %; Neutrophils # (A) 5.2 k/uL (1.3-7.7); Neutrophils % (A) 72 %; Platelet Count 125 k/uL (150-450); RBC 5.33 m/uL (4.30-5.90); RDW 13.5 % (11.5-15.5); WBC 7.3 k/uL (3.8-10.6)
[2020-06-15 16:23] LABS: Albumin 4.3 g/dL (3.5-5.0); Calcium 9.2 mg/dL (8.4-10.2); Total Bilirubin 0.6 mg/dL (0.2-1.3); Total Protein 7.6 g/dL (6.3-8.2)
== END | disposition home or self-care (01) ==
LOC: LABPAT 14:35
PROVIDERS: ATTEND Surgery Plastic and Reconstructive Surgery
DX: Z01.818 Encounter for other preprocedural examination (principal)
CPT/HCPCS: 36415; 80053; 85025; 93005

== ENCOUNTER → 2020-06-15 | Outpatient (CLI) | payer MEDICARE, OTHER ==
[2020-06-16 01:31] LABS: Hemoglobin A1C 5.3 % (4.0-6.0)
[2020-06-16 05:32] LABS: Microalbumin Creatinine Ratio <30 mg/g Creat (0-30); Urine Creatinine 110.2 mg/dL
== END | disposition home or self-care (01) ==
LOC: LABWHC1 14:33
PROVIDERS: ATTEND Physician Assistant
DX: Z00.00 Encounter for general adult medical examination without abnormal findings (principal); E11.9 Type 2 diabetes mellitus without complications; Z12.11 Encounter for screening for malignant neoplasm of colon; Z12.5 Encounter for screening for malignant neoplasm of prostate; I10 Essential (primary) hypertension
CPT/HCPCS: 82043; 82570; 83036; 36415; G0103

== ENCOUNTER → 2020-09-07 | Outpatient (CLI) | payer MEDICARE, OTHER ==
[2020-09-07 15:27] LABS: Basophils % (A) 0 %; Eosinophils # (A) 0.2 k/uL (0-0.7); Eosinophils % (A) 2 %; HCT 49.1 % (39.0-53.0); HGB 16.5 gm/dL (13.0-17.5); Lymphocytes # (A) 1.7 k/uL (1.0-4.8); Lymphocytes % (A) 20 %; MCH 29.7 pg (25.0-35.0); MCHC 33.5 g/dL (31.0-37.0); MCV 88.4 fL (80.0-100.0); Mean Platelet Volume 9.7; Monocytes # (A) 0.4 k/uL (0-1.0); Monocytes % (A) 5 %; Neutrophils # (A) 5.9 k/uL (1.3-7.7); Neutrophils % (A) 70 %; Platelet Count 120 k/uL (150-450); RBC 5.56 m/uL (4.30-5.90); RDW 13.1 % (11.5-15.5); WBC 8.5 k/uL (3.8-10.6)
[2020-09-07 15:34] LABS: ALT 33 U/L (4-49); AST 40 U/L (17-59); African American GFR (CKD) >90 (>60 ml/min/1.73 sqM); Albumin 4.5 g/dL (3.5-5.0); Alkaline Phosphatase 93 U/L (38-126); Anion Gap 6 mmol/L; Blood Urea Nitrogen 20 mg/dL (9-20); Calcium 9.8 mg/dL (8.4-10.2); Carbon Dioxide 33 mmol/L (22-30); Chloride 100 mmol/L (98-107); Glucose 93 mg/dL (74-99); Non-African American GFR(CKD) 87 (>60 ml/min/1.73 sqM); Potassium 4.6 mmol/L (3.5-5.1); Sodium 139 mmol/L (137-145); Total Bilirubin 0.9 mg/dL (0.2-1.3); Total Protein 7.8 g/dL (6.3-8.2)
== END | disposition home or self-care (01) ==
LOC: LABPAT 14:13
PROVIDERS: ATTEND Surgery Plastic and Reconstructive Surgery
DX: Z01.818 Encounter for other preprocedural examination (principal)
CPT/HCPCS: 36415; 80053; 85025

== ENCOUNTER → 2020-09-07 | Outpatient (CLI) | payer MEDICARE, OTHER ==
[2020-09-07 13:13] VITALS: BP 155/88; PULSE 57; RESP 18; TEMP 97.8; BMI 46.4
--- NOTE | 2020-09-07 14:09 | P.PN ---
Subjective Progress Note Date: 09/07/20 DATE OF SERVICE: 09/07/2020 CHIEF COMPLAINT: Panniculitis HISTORY OF PRESENT ILLNESS: Kartik Andersen is a 69-year-old male status post sleeve gastrectomy, 03/09/19. He is 2 years out. He comes in with uncontrolled panniculitis despite topical prescriptions. His symptoms have been present for over 3 years. He has seen a hand mold maker for his condition. He reportspainful skin ulcerations and breakdown along the pannus despite medical treatments and prescriptions. He reports pulling sensation along the lower back from the pannus. He has troubles with grooming and hygiene as a result of his pannus. His pannus interferes with his activities of daily living including dressing, bathing, and hygiene. He presents for evaluation for a panniculectomy. At height of 5 feet 9.5 inches, his ideal body weight is 168 pounds. He highest weight was 450 pounds, BMI 65.6. Today he comes in 318 pounds from 323 pounds, 2 months ago. He has lost 4 pounds in 2 months. His body mass index is down from 65.6 to 46.4. Lifetime weight loss is 132 pounds. Percent excess weight loss is 47%. He is 150 pounds overweight. PAST MEDICAL HISTORY: 1. Morbid obesity due to excess calories 2. Body mass index of 62.3, initial 3. Osteoarthritis of the knees. 4. Hypertensive heart disease. 5. Osteoarthritis of the hips 6. Bilateral lower extremity edema 7. Obstructive sleep apnea 8. Venous insufficiency 9. Osteoarthritis of the lower back. 10. Vitamin D deficiency PAST SURGICAL HISTORY: 1. Lumbar fusion 2. Wrist surgary 3. Thumb surgery 4. Status post sleeve gastrectomy HOME MEDICATIONS: Home Medications Medication Instructions Recorded Confirmed Alive Men's Multivitamin 1 tab PO DAILY 10/05/19 09/07/20 Ergocalciferol [Vitamin D2 50,000 unit PO WE 07/05/20 09/07/20 (DRISDOL)] Sinus Severe Nasal [place] 1 spray NASAL DIRECTED PRN 07/05/20 09/07/20 hydroCHLOROthiazide [Hydrodiuril] 25 mg PO DAILY 07/05/20 09/07/20 Naproxen Sodium [Aleve] 220 mg PO DAILY PRN 09/06/20 09/07/20 Vitamin A Acetate [Vitamin A] 10,000 unit SL DAILY 09/06/20 09/07/20 ALLERGIES: Allergies Allergy/AdvReac Type Severity Reaction Status Date / Time duloxetine [From Cymbalta] AdvReac Severe Vomiting, Verified 09/07/20 13:13 TROUBLE WITH VISION ,FEARFUL FEELING SOCIAL HISTORY: Past tobacco use. FAMILY HISTORY: No family history of ulcerative colitis disease or Crohn's disease. Family history of morbid obesity. No lupus in the family. No reports of stomach or esophageal cancer. REVIEW OF ORGAN SYSTEMS: CONSTITUTIONAL: At height of 5 feet 9.5 inches, his ideal body weight is 168 pounds. He highest weight was 450 pounds, BMI 65.6. HEENT: Denies any active troubles with vision or hearing. ENDOCRINE: No diabetes. No hypothyroidism. CARDIOVASCULAR: No past reports of palpitations or heart attacks or chest pain. Has severe venous stasis disease. RESPIRATORY: Has daytime somnolence. No asthma. Off CPAP machine GASTROINTESTINAL: Denies any bright red blood per rectum. No diarrhea. No constipation. MUSCULOSKELETAL: Has lower back pain and joint pain. Has osteoarthritis of the knees. NEURO: No headaches. No seizure disorders. PSYCH: No depression. No suicidal ideation. RHEUMATOLOGIC: No lupus. No rheumatoid arthritis. HEMATOLOGIC: Denies any abnormal bleeding or bruising. No personal history of DVTs. SKIN: Reports chronic panniculitis of the pannus poorly controlled with zinc oxide and topical prescriptions. No skin cancer. PHYSICAL EXAM: VITAL SIGNS: Height 5 foot 9.5 inches, weight 316 pounds. BMI 46.4 Vital Signs Temp 97.8 F 09/07/20 13:04 Pulse 57 L 09/07/20 13:04 Resp 18 09/07/20 13:04 BP 155/88 09/07/20 13:04 Pulse Ox GENERAL: Well-developed in no acute distress. HEENT: No scleral icterus. Extraocular movements grossly intact. Hears conversational speech. No nasal drainage. NECK: Supple without lymphadenopathy. CHEST: Nonlabored respirations with equal bilateral excursions. CARDIOVASCULAR: Regular rate and regular rhythm. Distal 2+ pulses. ABDOMEN: Obese, soft. Pannus, grade 2 with weight of 20+ pounds. Hang over pubis of 6+ cm. MUSCULOSKELETAL: No clubbing, cyanosis. NEURO: No focal or lateralizing signs. Cranial nerves 2 through 12 grossly within normal limits. PSYCH: Appropriate affect. Alert and oriented to person, place and time. SKIN: Good skin turgor. Well perfused. ASSESSMENT: 1. Morbid obesity due to excess calories 2. Body mass index of 62.3 to 46.4 3. Osteoarthritis of the knees. 4. Hypertensive heart disease. 5. Osteoarthritis of the hips 6. Bilateral lower extremity edema 7. Obstructive sleep apnea, improved 8. Venous insufficiency 9. Osteoarthritis of the lower back. 10. Vitamin D deficiency 11. Diabetes mellitus type 2, now improved 12. Iron deficiency anemia 13. Vitamin A deficiency 14. Erosive esophagitis 15. Status post sleeve gastrectomy 16. Severe panniculitis 17. Thrombocytopenia 18. Hypercholesterolemia PLAN: 1. Recommend panniculectomy for chronic panniculitis where functional deficit and infection should resolve after panniculectomy. 2. He is elevated risk for bleeding with thromboocytopenia 3. Recommend 2 week protein diet for optimal recovery 4. Risks of bleeding, needs for drains, flap failure, infection, need for further surgery were described. He is high risk for edie-operative complications with anticipated 10+pound skin resection. 5. Inpatient hospitalization also described 6. DVT prophylaxis. 7 Antibiotic prophylaxis 8. Extended recovery more than 6-8 weeks described including placement of MAIN drains for more than 2 weeks reviewed. 9. Pain management described with non-narcotic management including placement with drains Objective - Vital Signs Vital signs: Vital Signs Temp 97.8 F 09/07/20 13:04 Pulse 57 L 09/07/20 13:04 Resp 18 09/07/20 13:04 BP 155/88 09/07/20 13:04 Pulse Ox Intake & Output 09/06/20 09/07/20 09/07/20 18:59 06:59 18:59 Weight 144.696 kg
== END | disposition home or self-care (01) ==
LOC: BARWHC3 12:04
PROVIDERS: ATTEND Surgery Plastic and Reconstructive Surgery
DX: E66.01 Morbid (severe) obesity due to excess calories (principal); M17.0 Bilateral primary osteoarthritis of knee; I11.9 Hypertensive heart disease without heart failure; M16.0 Bilateral primary osteoarthritis of hip; R60.0 Localized edema; G47.33 Obstructive sleep apnea (adult) (pediatric); I87.2 Venous insufficiency (chronic) (peripheral); E55.9 Vitamin D deficiency, unspecified; E11.9 Type 2 diabetes mellitus without complications; D50.9 Iron deficiency anemia, unspecified; E50.9 Vitamin A deficiency, unspecified; K22.10 Ulcer of esophagus without bleeding; M79.3 Panniculitis, unspecified; D69.6 Thrombocytopenia, unspecified; E78.00 Pure hypercholesterolemia, unspecified; Z68.44 Body mass index [BMI] 60.0-69.9, adult; Z98.84 Bariatric surgery status; Z88.8 Allergy status to other drugs, medicaments and biological substances; Z79.899 Other long term (current) drug therapy
CPT/HCPCS: 99211

== ENCOUNTER 2020-09-12 06:39 | Inpatient (IN) | payer MEDICARE, OTHER ==
[2020-09-06 13:12] VITALS: BMI 44.9
--- NOTE | 2020-09-12 06:26 | P.GSHP ---
History of Present Illness H&P Date: 09/12/20 CHIEF COMPLAINT: Panniculitis HISTORY OF PRESENT ILLNESS: Kartik Andersen is a 69-year-old male status post sleeve gastrectomy, 03/09/19. He is over 1.5 years out. He comes in panniculitis. He reports pulling sensation along the lower back from the pannus. He has troubles with grooming and hygiene as a result of his pannus. His pannus interferes with his activities of daily living including dressing, bathing, and hygiene. He presents for panniculectomy. At height of 5 feet 9.5 inches, his ideal body weight is 168 pounds. He highest weight was 450 pounds, BMI 65.6. Today he comes in 318 pounds from 323 pounds, 2 months ago. He has lost 4 pounds in 2 months. His body mass index is down from 65.6 to 46.4. Lifetime weight loss is 132 pounds. Percent excess weight loss is 47%. He is 150 pounds overweight. PAST MEDICAL HISTORY: 1. Morbid obesity due to excess calories 2. Body mass index of 62.3, initial 3. Osteoarthritis of the knees. 4. Hypertensive heart disease. 5. Osteoarthritis of the hips 6. Bilateral lower extremity edema 7. Obstructive sleep apnea 8. Venous insufficiency 9. Osteoarthritis of the lower back. 10. Vitamin D deficiency PAST SURGICAL HISTORY: 1. Lumbar fusion 2. Wrist surgary 3. Thumb surgery 4. Status post sleeve gastrectomy HOME MEDICATIONS: See list and reviewed ALLERGIES: See list and reviewed SOCIAL HISTORY: Past tobacco use. FAMILY HISTORY: No family history of ulcerative colitis disease or Crohn's disease. Family history of morbid obesity. No lupus in the family. No reports of stomach or esophageal cancer. REVIEW OF ORGAN SYSTEMS: CONSTITUTIONAL: At height of 5 feet 9.5 inches, his ideal body weight is 168 pounds. He highest weight was 450 pounds, BMI 65.6. HEENT: Denies any active troubles with vision or hearing. ENDOCRINE: No diabetes. No hypothyroidism. CARDIOVASCULAR: No past reports of palpitations or heart attacks or chest pain. Has severe venous stasis disease. RESPIRATORY: Has daytime somnolence. No asthma. Off CPAP machine GASTROINTESTINAL: Denies any bright red blood per rectum. No diarrhea. No constipation. MUSCULOSKELETAL: Has lower back pain and joint pain. Has osteoarthritis of the knees. NEURO: No headaches. No seizure disorders. PSYCH: No depression. No suicidal ideation. RHEUMATOLOGIC: No lupus. No rheumatoid arthritis. HEMATOLOGIC: Denies any abnormal bleeding or bruising. No personal history of DVTs. SKIN: Reports chronic panniculitis of the pannus poorly controlled with zinc oxide and topical prescriptions. No skin cancer. PHYSICAL EXAM: VITAL SIGNS: Height 5 foot 9.5 inches, weight 316 pounds. BMI 46.4 GENERAL: Well-developed in no acute distress. HEENT: No scleral icterus. Extraocular movements grossly intact. Hears conversational speech. No nasal drainage. NECK: Supple without lymphadenopathy. CHEST: Nonlabored respirations with equal bilateral excursions. CARDIOVASCULAR: Regular rate and regular rhythm. Distal 2+ pulses. ABDOMEN: Obese, soft. Pannus, grade 2 with weight of 20+ pounds. MUSCULOSKELETAL: No clubbing, cyanosis. NEURO: No focal or lateralizing signs. Cranial nerves 2 through 12 grossly within normal limits. PSYCH: Appropriate affect. Alert and oriented to person, place and time. SKIN: Good skin turgor. Well perfused. ASSESSMENT: 1. Morbid obesity due to excess calories 2. Body mass index of 62.3 to 46.4 3. Osteoarthritis of the knees. 4. Hypertensive heart disease. 5. Osteoarthritis of the hips 6. Bilateral lower extremity edema 7. Obstructive sleep apnea, improved 8. Venous insufficiency 9. Osteoarthritis of the lower back. 10. Vitamin D deficiency 11. Diabetes mellitus type 2, now improved 12. Iron deficiency anemia 13. Vitamin A deficiency 14. Erosive esophagitis 15. Status post sleeve gastrectomy 16. Severe panniculitis 17. Thrombocytopenia 18. Hypercholesterolemia PLAN: 1. Recommend panniculectomy 2. He is elevated risk for bleeding with thrombocytopenia 3. Risks of bleeding, needs for drains, flap failure, infection, need for further surgery were described. He is high risk for edie-operative complications with anticipated 10+pound skin resection. 4. DVT prophylaxis. 5 Antibiotic prophylaxis 6. Recommend repeat CBC and CMP for history of thrombocytopenia including hypertensive heart disease Past Medical History Past Medical History: Hypertension, Sleep Apnea/CPAP/BIPAP, Vascular Disorder Additional Past Medical History / Comment(s): venous insufficiency History of Any Multi-Drug Resistant Organisms: None Reported Past Surgical History: Bariatric Surgery, Orthopedic Surgery Additional Past Surgical History / Comment(s): lumbar fusion, right wrist surgery , thumb surgerySleeve Gastrectomy 03-09-19 Past Anesthesia/Blood Transfusion Reactions: No Reported Reaction Additional Past Anesthesia/Blood Transfusion Reaction / Comment(s): claustrophobia Past Psychological History: No Psychological Hx Reported Additional Psychological History / Comment(s): claustrophobia Smoking Status: Former smoker Past Alcohol Use History: None Reported Additional Past Alcohol Use History / Comment(s): quit smoking 2011 Past Drug Use History: None Reported - Past Family History Mother Family Medical History: Cancer Medications and Allergies Home Medications Medication Instructions Recorded Confirmed Type Alive Men's Multivitamin 1 tab PO DAILY 10/05/19 09/07/20 History Ergocalciferol [Vitamin D2 50,000 unit PO WE 07/05/20 09/07/20 History (DRISDOL)] Sinus Severe Nasal [place] 1 spray NASAL DIRECTED PRN 07/05/20 09/07/20 History hydroCHLOROthiazide [Hydrodiuril] 25 mg PO DAILY 07/05/20 09/07/20 History Naproxen Sodium [Aleve] 220 mg PO DAILY PRN 09/06/20 09/07/20 History Vitamin A Acetate [Vitamin A] 10,000 unit SL DAILY 09/06/20 09/07/20 History Allergies Allergy/AdvReac Type Severity Reaction Status Date / Time duloxetine [From Cymbalta] AdvReac Severe Vomiting, Verified 09/07/20 13:13 TROUBLE WITH VISION ,FEARFUL FEELING
[~2020-09-12 06:39] MED LIST changes: -CHLORHEXIDINE GLUCONATE 15 ML CUP MUCOUS MEM ONE; -DEXAMETHASONE SOD PHOSPHATE 10 MG/ML 1 ML VIAL IV ONE; -ENOXAPARIN 40 MG/0.4 ML SYRINGE SQ ONE; -LIDOCAINE 1% 20 ML VIAL (10MG/ML) FOR IV START INTRADERMA PRN; -MIDAZOLAM 2 MG/2 ML VIAL IV PRN; -PANTOPRAZOLE 40 MG/10 ML VIAL IV ONE; -ceFAZolin 3 GM in SODIUM CHLORIDE 0.9% 100 ML IVPB ONE; +ceFAZolin 3 GM in SODIUM CHLORIDE 0.9% 100 ML IVPB PRN; -fentaNYL (PF) 50 MCG/ML 2 ML AMP IV PRN
[2020-09-12] MEDS ORDERED: HYDROmorphone 0.5 MG/0.5 ML SYRINGE IVP PRN (07:29)
[2020-09-12] MEDS ORDERED: ONDANSETRON 4 MG/2 ML VIAL IVP ONE (07:29)
[2020-09-12] MEDS ORDERED: fentaNYL (PF) 50 MCG/ML 2 ML AMP IVP PRN (07:29)
[2020-09-12] MEDS ORDERED: ACETAMINOPHEN TAB 500 MG TAB PO STA (07:29)
[2020-09-12] MEDS ORDERED: MIDAZOLAM 2 MG/2 ML VIAL IV PRN (07:29)
[2020-09-12] MEDS ORDERED: DEXAMETHASONE SOD PHOSPHATE 4 MG/ML 1 ML VIAL IV ONE (07:29)
[2020-09-12] MEDS ORDERED: LIDOCAINE 1% (10MG/ML) FOR IV START INTRADERMA PRN (07:29)
[2020-09-12] MEDS ORDERED: GABAPENTIN 300 MG CAP PO STA (07:29)
[2020-09-12] MEDS ORDERED: TAMSULOSIN 0.4 MG CAP.ER.24H PO STA (07:29)
[2020-09-12] MEDS: LACTATED RINGERS 1,000 ML IV SCH ×2 (07:46→21:35)
[2020-09-12] MEDS ORDERED: ACETAMINOPHEN TAB 500 MG TAB ONE (08:05)
[2020-09-12] MEDS: MELOXICAM 7.5 MG TAB PO SCH (08:09)
[2020-09-12 08:14] LABS: Basophils # (A) 0.1 k/uL (0-0.2); Basophils % (A) 1 %; Eosinophils # (A) 0.2 k/uL (0-0.7); Eosinophils % (A) 2 %; HCT 49.4 % (39.0-53.0); HGB 16.7 gm/dL (13.0-17.5); Lymphocytes # (A) 1.4 k/uL (1.0-4.8); Lymphocytes % (A) 18 %; MCH 29.5 pg (25.0-35.0); MCHC 33.7 g/dL (31.0-37.0); MCV 87.6 fL (80.0-100.0); Mean Platelet Volume 9.2; Monocytes # (A) 0.4 k/uL (0-1.0); Monocytes % (A) 6 %; Neutrophils # (A) 5.8 k/uL (1.3-7.7); Neutrophils % (A) 72 %; Platelet Count 145 k/uL (150-450); RBC 5.64 m/uL (4.30-5.90); RDW 13.3 % (11.5-15.5); WBC 8.1 k/uL (3.8-10.6)
[2020-09-12 08:24] LABS: ALT 32 U/L (4-49); AST 38 U/L (17-59); African American GFR (CKD) >90 (>60 ml/min/1.73 sqM); Albumin 4.4 g/dL (3.5-5.0); Alkaline Phosphatase 98 U/L (38-126); Anion Gap 7 mmol/L; Blood Urea Nitrogen 18 mg/dL (9-20); Calcium 9.7 mg/dL (8.4-10.2); Carbon Dioxide 32 mmol/L (22-30); Chloride 101 mmol/L (98-107); Glucose 106 mg/dL (74-99); Non-African American GFR(CKD) 89 (>60 ml/min/1.73 sqM); Potassium 4.1 mmol/L (3.5-5.1); Sodium 140 mmol/L (137-145); Total Bilirubin 0.8 mg/dL (0.2-1.3); Total Protein 7.9 g/dL (6.3-8.2)
[2020-09-12] MEDS ORDERED: fentaNYL (PF) 50 MCG/ML 2 ML AMP ONE (10:09)
[2020-09-12] MEDS ORDERED: LIDOCAINE 1% INJ 10MG/ML (20 ML MDV) ONE (10:09)
[2020-09-12] MEDS ORDERED: ROCURONIUM 10 MG/ML (10 ML VIAL) IV ONE (10:09)
[2020-09-12] MEDS ORDERED: HYDROmorphone (PF) 1 MG/ML ONE (10:09)
[2020-09-12] MEDS ORDERED: PROPOFOL 10 MG/ML 20 ML VIAL IV ONE (10:09)
[2020-09-12] MEDS ORDERED: MIDAZOLAM 2 MG/2 ML VIAL ONE (10:09)
[2020-09-12] MEDS ORDERED: SUCCINYLCHOLINE CHLORIDE VIAL 200 MG/10 ML VIAL IV ONE (10:09)
[2020-09-12] MEDS ORDERED: LACTATED RINGERS 1,000 ML IV ONE ×3 (11:23→13:33)
[2020-09-12] MEDS ORDERED: ONDANSETRON 4 MG/2 ML VIAL IVP PRN (14:11)
[2020-09-12] MEDS ORDERED: diphenhydrAMINE 50 MG/ML 1 ML VIAL IVP PRN (14:11)
[2020-09-12] MEDS ORDERED: NALOXONE 0.4 MG/ML 1 ML VIAL IV PRN (14:11)
[2020-09-12] MEDS ORDERED: ACETAMINOPHEN IV (For NPO) 1,000 MG in EMPTY BAG 1 BAG IVPB ONE (14:11)
[2020-09-12] MEDS ORDERED: [UNRECOGNIZED DRUG - OTHER] NASAL PRN (14:15)
--- NOTE | 2020-09-12 14:24 | P.OP ---
Date of Procedure: 09/12/20 Description of Procedure: SURGEON: YONNY VASQUEZ MD PREOPERATIVE DIAGNOSES: 1. Chronic panniculitis recalcitrant to medical therapy 2. Adiposis panniculus 3. Morbid obesity due to excess calories, Body mass index of 62.3 to 46.4 4. Hypertensive heart disease. 5. Osteoarthritis of the hips 6. Bilateral lower extremity edema 7. Obstructive sleep apnea, improved 8. Venous insufficiency 9. Osteoarthritis of the lower back. 10. Vitamin D deficiency 11. Diabetes mellitus type 2, now improved 12. Iron deficiency anemia 13. Vitamin A deficiency 14. Erosive esophagitis 15. Status post sleeve gastrectomy 16. Thrombocytopenia 17. Hypercholesterolemia 18. Osteoarthritis of the knees. 19. Status post massive weight loss, 132 pounds. POSTOPERATIVE DIAGNOSES: 1. Chronic panniculitis recalcitrant to medical therapy 2. Adiposis panniculus with initial reducible ventral hernia 27 cm x 16 cm 3. Morbid obesity due to excess calories, Body mass index of 62.3 to 46.4 4. Hypertensive heart disease. 5. Osteoarthritis of the hips 6. Bilateral lower extremity edema 7. Obstructive sleep apnea, improved 8. Venous insufficiency 9. Osteoarthritis of the lower back. 10. Vitamin D deficiency 11. Diabetes mellitus type 2, now improved 12. Iron deficiency anemia 13. Vitamin A deficiency 14. Erosive esophagitis 15. Status post sleeve gastrectomy 16. Thrombocytopenia 17. Hypercholesterolemia 18. Osteoarthritis of the knees. 19. Status post massive weight loss, 132 pounds. OPERATION: 1. Panniculectomy, 13 pounds. 2. Primary repair of ventral hernia 27 x 16 cm without mesh. ANESTHESIA: General ESTIMATED BLOOD LOSS: 400 mL SPECIMENS REMOVED: Pannus 13 pounds. COMPLICATIONS: None. CONDITION: Stable. DRAINS: Two #19 Ry drains below abdominal flap extending through the pubis. OPERATIVE FINDINGS: 1. Pannus weighing 13 pounds, excised. 2. Abdominal ventral hernia of 27 x 16 cm along the midline repaired primarily using fascial imbrication. INDICATIONS: Kartik Andersen is a 69-year-old male status post sleeve gastrectomy, 03/09/19. He is over 1.5 years out. He comes in panniculitis. He reports pulling sensation along the lower back from the pannus. He has troubles with grooming and hygiene as a result of his pannus. His pannus interferes with his activities of daily living including dressing, bathing, and hygiene. He presents for panniculectomy. At height of 5 feet 9.5 inches, his ideal body weight is 168 pounds. He highest weight was 450 pounds, BMI 65.6. Today he comes in 318 pounds from 323 pounds, 2 months ago. He has lost 4 pounds in 2 months. His body mass index is down from 65.6 to 46.4. Lifetime weight loss is 132 pounds. Percent excess weight loss is 47%. He is 150 pounds overweight. Benefits and risks of the procedure including bleeding, infection, cosmetic deformity, abdominal seromas, placement of drains, risk of flap failure were described at length. Informed consent was obtained. DESCRIPTION: In the preanesthesia care unit the patient was marked with an indelible marker and was given lovenox subcutaneously. The patient was brought into the operating room and laid in supine position. After general induction, a Farah catheter was placed. The abdomen was then prepped and draped in standard sterile fashion using ChloraPrep. The skin was prepped as far laterally to the back, inferiorly to the upper thighs and superiorly to above the bilateral breasts. A timeout protocol was confirmed with the surgical team regarding patient's name, procedure to be performed, including preoperative medications. She had received Ancef 2 grams IV antibiotics. Once the time-out protocol was confirmed with the surgical team, the patient was re-marked with indelible marker whereby the midline of the xiphoid to the mons pubis was marked. The anterior/superior iliac spine along the bilateral hips was also marked. At 8 cm above the pubis commissure a transverse incision was made for the inferior portion of the flap. Using a #10 blade, the incision was taken from the midline laterally to above the anterior/superior iliac spine, initially on the left side of the patient and then on the right side of the patient. Electro-Bovie cautery was used to control for hemostasis. The dissection was taken down to the level of the fascia. Landmarks used were the xiphoid process as well as the bilateral costal margins for the superior margin. Care was taken to avoid any creation of dog ears during the dissection. Once hemostasis was checked, a large ventral hernia fascial defect of 27 x 16 cm was identified unrelated to previous bariatric procedure. During this dissection, the umbilicus was truncated at its fascial insertion. The umbilicus fascial excision was oversewn using #2 Ethibond. Starting from the xiphoid process, fascial imbrication was performed using #2 Ethibond. Multiple facial imbrications at least 3 layers were performed. The ventral hernia defect was completely repaired and closed. Hemostasis was once again checked with electro-Bovie cautery and all defects were addressed. Attention was now brought to closure of the flap. Using stainless steel skin romulo, the midline was once again marked of the upper flap as well as the pubic commissure. The patient was placed in a flexed position of approximately 17 degrees at the hips. The pannus was extended inferiorly to the feet. The upper flap was created once the excess skin was excised. Again care was taken to avoid any dog ears along the lateral aspect of the incisions. Once excised, the pannus was weighed at 13 pounds. The upper and lower flaps were reapproximated at the midline and then laterally to the skin with skin romulo. Once reapproximated, the skin was closed in layers using 0 Vicryl for the superficial fascial system followed by running 3-0 Monocryl for the deep dermis in a running subcuticular fashion. Prior to skin closure, two round #19 Ry drains were placed underneath the flap and brought out just inferior to the incision along the pubis. Drain stitch using 2-0 nylon was placed. Once the incision was closed, bulb suction was attached. Hemostasis was checked. At the end of the procedure, the needle, sponge and instrument count was verified correct. The skin was cleansed with hydrogen peroxide. Exofin tape including adhesive was placed along the length of the incision. Optifoam dressing was also placed over the incision and over the MAIN sites. The patient was then transferred to a hospital bed in a beach chair position. An abdominal binder was placed and marked. The patient was taken to the postanesthesia care unit in stable condition, awake and extubated.
[2020-09-12] MEDS ORDERED: ACETAMINOPHEN IV (For NPO) 1,000 MG/100 ML VIAL IVPB ONE (14:58)
[2020-09-12] MEDS: ALBUTEROL NEBULIZED 2.5 MG/3 ML INHALATION SCH ×2 (16:13→20:08)
[2020-09-12] MEDS: ACETAMINOPHEN TAB 500 MG TAB PO SCH ×2 (17:21→23:46)
[2020-09-12] MEDS ORDERED: ceFAZolin 3 GM in SODIUM CHLORIDE 0.9% 100 ML IVPB SCH (18:00)
[2020-09-12] MEDS: 0.9% NACL WITH KCL 20 MEQ/L 1,000 ML IV SCH (21:35)
[2020-09-12] MEDS: HYDROmorphone 1 MG/ML 1 ML SYRINGE IVP PRN (23:48)
[2020-09-13 02:08] VITALS: RESP 18
[2020-09-13] MEDS: 0.9% NACL WITH KCL 20 MEQ/L 1,000 ML IV SCH (03:34)
[2020-09-13] MEDS: ACETAMINOPHEN TAB 500 MG TAB PO SCH ×2 (05:31→11:41)
[2020-09-13] MEDS: HYDROmorphone 1 MG/ML 1 ML SYRINGE IVP PRN (05:34)
[2020-09-13] MEDS ORDERED: ENOXAPARIN 40 MG/0.4 ML SYRINGE SQ PRN (07:00)
[2020-09-13] MEDS: MELOXICAM 7.5 MG TAB PO SCH (07:15)
[2020-09-13 07:49] VITALS: BP 163/65; PULSE 61; TEMP 97.6
[2020-09-13] MEDS ORDERED: 0.9% NACL WITH KCL 20 MEQ/L 1,000 ML IV SCH (08:00)
[2020-09-13] MEDS: ALBUTEROL NEBULIZED 2.5 MG/3 ML INHALATION SCH ×2 (08:00→13:08)
[2020-09-13] MEDS ORDERED: PANTOPRAZOLE 40 MG/10 ML VIAL IV SCH (09:00)
[2020-09-13] MEDS ORDERED: hydroCHLOROthiazide 25 MG TAB PO SCH (09:00)
[2020-09-13] MEDS ORDERED: ENOXAPARIN 40 MG/0.4 ML SYRINGE SQ SCH (09:00)
[2020-09-13 10:31] LABS: Basophils # (A) 0.02 X 10*3/uL (0.00-0.10); Basophils % (A) 0.2 %; Eosinophils # (A) 0.06 X 10*3/uL (0.04-0.35); Eosinophils % (A) 0.5 %; HCT 42.9 % (39.6-50.0); HGB 13.6 g/dL (13.0-17.0); Lymphocytes % (A) 11.1 %; MCH 28.8 pg (27.0-32.0); MCHC 31.7 g/dL (32.0-37.0); MCV 90.7 fL (80.0-97.0); Mean Platelet Volume 12.4 fL (9.5-12.2); Monocytes # (A) 0.75 X 10*3/uL (0.20-1.00); Monocytes % (A) 6.4 %; Neutrophils # (A) 9.56 X 10*3/uL (1.80-7.70); Neutrophils % (A) 81.5 %; Platelet Count 126 X 10*3/uL (140-440); RBC 4.73 X 10*6/uL (4.40-5.60); RDW 13.2 % (11.5-14.5); WBC 11.72 X 10*3/uL (4.50-10.00)
[2020-09-13 10:48] LABS: African American GFR (CKD) 111.6 (60.0-200.0); Anion Gap 5.3 mmol/L (4.00-12.00); Calcium 8.7 mg/dL (8.7-10.3); Carbon Dioxide 30.7 mmol/L (21.6-31.8); Magnesium 1.6 mg/dL (1.5-2.4); Non-African American GFR(CKD) 96.3 (60.0-200.0); Phosphorus 3.2 mg/dL (2.4-5.1); Potassium 4.4 mmol/L (3.5-5.5)
--- NOTE | 2020-09-13 14:01 | P.DS ---
<Flor Resendez - Last Filed: 09/13/20 13:58> Providers Expected date of discharge: 09/13/20 Hospital Course: Discharge diagnosis 1. Chronic panniculitis recalcitrant to medical therapy 2. Adiposis panniculus with initial reducible ventral hernia 27 cm x 16 cm 3. Morbid obesity due to excess calories, Body mass index of 62.3 to 46.4 4. Hypertensive heart disease. 5. Osteoarthritis of the hips 6. Bilateral lower extremity edema 7. Obstructive sleep apnea, improved 8. Venous insufficiency 9. Osteoarthritis of the lower back. 10. Vitamin D deficiency 11. Diabetes mellitus type 2, now improved 12. Iron deficiency anemia 13. Vitamin A deficiency 14. Erosive esophagitis 15. Status post sleeve gastrectomy 16. Thrombocytopenia 17. Hypercholesterolemia 18. Osteoarthritis of the knees. 19. Status post massive weight loss, 132 pounds. Hospital course Kartik Andersen is a 69-year-old male status post sleeve gastrectomy, 03/09/19. He is over 1.5 years out. He comes in panniculitis. He reports pulling sensation along the lower back from the pannus. He has troubles with grooming and hygiene as a result of his pannus. His pannus interferes with his activities of daily living including dressing, bathing, and hygiene. Patient is status post Panniculectomy, 13 pounds and Primary repair of ventral hernia 27 x 16 cm without mesh. Patient tolerated surgery well. His pain is controlled. He is tolerating diet. He is ambulating. He is passing gas. He is afebrile. He is stable for discharge. 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 Signing provider agrees with the documented findings, assessment, and plan of care. Patient Condition at Discharge: Good Plan - Discharge Summary Discharge Rx Participant: Yes New Discharge Prescriptions: New Ibuprofen [Motrin] 600 mg PO Q8HR PRN #30 tab PRN Reason: Pain Acetaminophen Tab [Tylenol Tab] 1,000 mg PO Q6HR PRN #30 tablet PRN Reason: Pain Continue Alive Men's Multivitamin 1 tab PO DAILY hydroCHLOROthiazide [Hydrodiuril] 25 mg PO DAILY Sinus Severe Nasal [place] 1 spray NASAL DIRECTED PRN PRN Reason: Congestion Ergocalciferol [Vitamin D2 (DRISDOL)] 50,000 unit PO WE Naproxen Sodium [Aleve] 220 mg PO DAILY PRN PRN Reason: Pain Vitamin A Acetate [Vitamin A] 10,000 unit SL DAILY Discharge Medication List Alive Men's Multivitamin 1 tab PO DAILY 10/05/19 [History] Ergocalciferol [Vitamin D2 (DRISDOL)] 50,000 unit PO WE 07/05/20 [History] Sinus Severe Nasal [place] 1 spray NASAL DIRECTED PRN 07/05/20 [History] hydroCHLOROthiazide [Hydrodiuril] 25 mg PO DAILY 07/05/20 [History] Naproxen Sodium [Aleve] 220 mg PO DAILY PRN 09/06/20 [History] Vitamin A Acetate [Vitamin A] 10,000 unit SL DAILY 09/06/20 [History] Acetaminophen Tab [Tylenol Tab] 1,000 mg PO Q6HR PRN #30 tablet 09/13/20 [Rx] Ibuprofen [Motrin] 600 mg PO Q8HR PRN #30 tab 09/13/20 [Rx] [facility]ment[facility]Ref[place] [facility] [place] [place] [facility] [place] [facility]16/20 10:00 am Patient Instructions/Handouts: Panniculectomy (DC) Activity/Diet/Wound Care/Special Instructions: NO lifting over 4 pounds in 4 weeks, October 10. No shower. No bathtub soaks. Record MAIN drain output daily and strip drains to prevent clogging. Sleep with head of bed up at 30 to 45 degrees. Walk with hips flexed to prevent tear of your incision. Dressings to be removed by your doctor in the office. EAT 75 G PROTEIN DAILY FOR OPTIMAL RECOVERY. Discharge Disposition: HOME SELF-CARE <Miranda Morris - Last Filed: 09/14/20 06:10> Providers Date of admission: 09/12/20 13:55 Attending physician: Miranda Morris Consults: 09/12/20 07:29 Consult Physician Routine Consulting Provider: [facility] Consult Reason/Comments: Abdominal wall block Do you want consulting provider notified?: Yes Primary care physician: Feli Page MD - Discharge Diagnosis(es) (1) Morbid obesity due to excess calories Status: Acute (2) Central adiposity Status: Acute (3) History of sleeve gastrectomy Status: Acute (4) Panniculitis Status: Acute (5) Ventral hernia Status: Acute (6) Thrombocytopenia Status: Acute Hospital Course: As above. Please see additional documentation below. Following his procedure, patient reports his pain was well-controlled with limited narcotic use. Additionally, patient was strictly warned to avoid lifting over 4 pounds for 4 weeks for risk of abdominal trauma. MAIN drain teaching was performed. Strict follow-up in the bariatric center postop at least on a weekly basis was reviewed. Reinforcement of high-protein low-carb diet reviewed for optimal recovery. All questions were addressed. Abdominal binder was properly fitted. Overall patient was in excellent condition and stable for discharge. Procedures: OPERATION: 1. Panniculectomy, 13 pounds. 2. Primary repair of ventral hernia 27 x 16 cm without mesh. ANESTHESIA: General ESTIMATED BLOOD LOSS: 400 mL SPECIMENS REMOVED: Pannus 13 pounds. COMPLICATIONS: None. CONDITION: Stable. DRAINS: Two #19 Ry drains below abdominal flap extending through the pubis. OPERATIVE FINDINGS: 1. Pannus weighing 13 pounds, excised. 2. Abdominal ventral hernia of 27 x 16 cm along the midline repaired primarily using fascial imbrication.
--- NOTE | 2020-09-14 12:11 | P.OP ---
Date of Procedure: 09/12/20 Description of Procedure: SURGEON: YONNY VASQUEZ MD PREOPERATIVE DIAGNOSES: 1. Chronic panniculitis recalcitrant to medical therapy 2. Adiposis panniculus 3. Morbid obesity due to excess calories, Body mass index of 62.3 to 46.4 4. Hypertensive heart disease. 5. Osteoarthritis of the hips 6. Bilateral lower extremity edema 7. Obstructive sleep apnea, improved 8. Venous insufficiency 9. Osteoarthritis of the lower back. 10. Vitamin D deficiency 11. Diabetes mellitus type 2, now improved 12. Iron deficiency anemia 13. Vitamin A deficiency 14. Erosive esophagitis 15. Status post sleeve gastrectomy 16. Thrombocytopenia 17. Hypercholesterolemia 18. Osteoarthritis of the knees. 19. Status post massive weight loss, 132 pounds. POSTOPERATIVE DIAGNOSES: 1. Chronic panniculitis recalcitrant to medical therapy 2. Adiposis panniculus with initial reducible ventral hernia 27 cm x 16 cm 3. Morbid obesity due to excess calories, Body mass index of 62.3 to 46.4 4. Hypertensive heart disease. 5. Osteoarthritis of the hips 6. Bilateral lower extremity edema 7. Obstructive sleep apnea, improved 8. Venous insufficiency 9. Osteoarthritis of the lower back. 10. Vitamin D deficiency 11. Diabetes mellitus type 2, now improved 12. Iron deficiency anemia 13. Vitamin A deficiency 14. Erosive esophagitis 15. Status post sleeve gastrectomy 16. Thrombocytopenia 17. Hypercholesterolemia 18. Osteoarthritis of the knees. 19. Status post massive weight loss, 132 pounds. OPERATION: 1. Panniculectomy, 13 pounds. 2. Primary repair of ventral hernia 27 x 16 cm without mesh. 3. Abdominal wall reconstruction with myocutaneous bilateral flap advancement. ANESTHESIA: General ESTIMATED BLOOD LOSS: 400 mL SPECIMENS REMOVED: Pannus 13 pounds. COMPLICATIONS: None. CONDITION: Stable. DRAINS: Two #19 Ry drains below abdominal flap extending through the pubis. OPERATIVE FINDINGS: 1. Pannus weighing 13 pounds, excised. 2. Abdominal ventral hernia of 27 x 16 cm along the midline repaired primarily using fascial imbrication. INDICATIONS: Kartik Andersen is a 69-year-old male status post sleeve gastrectomy, 03/09/19. He is over 1.5 years out. He comes in panniculitis. He reports pulling sensation along the lower back from the pannus. He has troubles with g rooming and hygiene as a result of his pannus. His pannus interferes with his activities of daily living including dressing, bathing, and hygiene. He presents for panniculectomy. At height of 5 feet 9.5 inches, his ideal body weight is 168 pounds. He highest weight was 450 pounds, BMI 65.6. Today he comes in 318 pounds from 323 pounds, 2 months ago. He has lost 4 pounds in 2 months. His body mass index is down from 65.6 to 46.4. Lifetime weight loss is 132 pounds. Percent excess weight loss is 47%. He is 150 pounds overweight. Benefits and risks of the procedure including bleeding, infection, cosmetic deformity, abdominal seromas, placement of drains, risk of flap failure were described at length. Informed consent was obtained. DESCRIPTION: In the preanesthesia care unit the patient was marked with an indelible marker and was given lovenox subcutaneously. The patient was brought into the operating room and laid in supine position. After general induction, a Farah catheter was placed. The abdomen was then prepped and draped in standard sterile fashion using ChloraPrep. The skin was prepped as far laterally to the back, inferiorly to the upper thighs and superiorly to above the chest. A timeout protocol was confirmed with the surgical team regarding patient's name, procedure to be performed, including preoperative medications. He had received Ancef IV antibiotics. Once the time-out protocol was confirmed with the surgical team, the patient was re-marked with indelible marker whereby the midline of the xiphoid to the mons pubis was marked. The anterior/superior iliac spine along the bilateral hips was also marked. At 8 cm above the pubis commissure a transverse incision was made for the inferior portion of the flap. Using a #10 blade, the incision was taken from the midline laterally to above the anterior/superior iliac spine, initially on the left side of the patient and then on the right side of the patient. Electro-Bovie cautery was used to control for hemostasis. The dissection was taken down to the level of the fascia. Landmarks used were the xiphoid process as well as the bilateral costal margins for the superior margin. Care was taken to avoid any creation of dog ears during the dissection. Once hemostasis was checked, a large ventral hernia fascial defect of 27 x 16 cm was identified unrelated to previous bariatric procedure. During this dissection, the umbilicus was truncated at its fascial insertion. The umbilicus fascial excision was oversewn using #2 Ethibond. Bilateral myocutaneous flap advancement was performed to close the large defect of 27 x 16 cm using the rectus muscle. After the muscular flaps were exposed, the midline was re-marked again from the xiphoid to the pubis commissure. Fascial imbrications x 4 were co mpleted with primary repair reinforcement of the bilateral myocutaneous flap advancement. Starting from the xiphoid process, the rectus muscle was overlapped in the bilateral myocutaneous flap advancement using #2 Ethibond. The ventral hernia defect was completely repaired and closed. Hemostasis was once again checked with electro-Bovie cautery and all defects were addressed. Attention was now brought to closure of the flap. Using stainless steel skin romulo, the midline was once again marked of the upper flap as well as the pubic commissure. The patient was placed in a flexed position of approximately 17 degrees at the hips. The pannus was extended inferiorly to the feet. The upper flap was created once the excess skin was excised. Again care was taken to avoid any dog ears along the lateral aspect of the incisions. Once excised, the pannus was weighed at 13 pounds. The upper and lower flaps were reapproximated at the midline and then laterally to the skin with skin romulo. Once reapproximated, the skin was closed in layers using 0 Vicryl for the superficial fascial system followed by running 3-0 Monocryl for the deep dermis in a running subcuticular fashion. Prior to skin closure, two round #19 Ry drains were placed underneath the flap and brought out just inferior to the incision along the pubis. Drain stitch using 2-0 nylon was placed. Once the incision was closed, bulb suction was attached. Hemostasis was checked. At the end of the procedure, the needle, sponge and instrument count was verified correct. The skin was cleansed with hydrogen peroxide. Exofin tape including adhesive was placed along the length of the incision. Optifoam dressing was also placed over the incision and over the MAIN sites. The patient was then transferred to a hospital bed in a beach chair position. An abdominal binder was placed and marked. The patient was taken to the postanesthesia care unit in stable condition, awake and extubated.
== END 2020-09-13 14:03 | disposition home or self-care (01) | DRG 623 ==
LOC: OR 06:39 → 4SSUR 13:55 → OR 16:02
PROVIDERS: ADMIT Surgery Plastic and Reconstructive Surgery; ATTEND Surgery Plastic and Reconstructive Surgery
PROC: 0WQF0ZZ Repair Abdominal Wall, Open Approach (ICD-10-PCS; principal; 2020-09-12 08:55)
PROC: 0JB80ZZ Excision of Abdomen Subcutaneous Tissue and Fascia, Open Approach (ICD-10-PCS; principal; 2020-09-12 08:55)
DX: E65 Localized adiposity (principal); K22.10 Ulcer of esophagus without bleeding; D50.9 Iron deficiency anemia, unspecified; D69.6 Thrombocytopenia, unspecified; E11.9 Type 2 diabetes mellitus without complications; E50.9 Vitamin A deficiency, unspecified; E55.9 Vitamin D deficiency, unspecified; E66.01 Morbid (severe) obesity due to excess calories; Z68.42 Body mass index [BMI] 45.0-49.9, adult; E78.00 Pure hypercholesterolemia, unspecified; F40.240 Claustrophobia; G47.33 Obstructive sleep apnea (adult) (pediatric); I11.9 Hypertensive heart disease without heart failure; I87.2 Venous insufficiency (chronic) (peripheral); K43.9 Ventral hernia without obstruction or gangrene; M16.0 Bilateral primary osteoarthritis of hip; M17.0 Bilateral primary osteoarthritis of knee; M47.9 Spondylosis, unspecified; Z79.899 Other long term (current) drug therapy; Z87.891 Personal history of nicotine dependence; Z98.84 Bariatric surgery status
CPT/HCPCS: 80051; 80053; 82310; 82565; 83735; 84100; 84520; 85025; 86850; 86900; 86901; 94640

== ENCOUNTER → 2020-09-16 | Outpatient (CLI) | payer MEDICARE, OTHER ==
[2020-09-16 10:01] VITALS: BP 157/85; PULSE 76; TEMP 98.7; BMI 46.0
--- NOTE | 2020-09-16 11:29 | P.PN ---
Subjective Progress Note Date: 09/16/20 DATE OF SERVICE: 09/16/2020 CHIEF COMPLAINT: Panniculitis HISTORY OF PRESENT ILLNESS: Kartik Andersen is a 69-year-old male status post sleeve gastrectomy, 03/09/19. He is 3 years out. He is now status post panniculectomy 13 pounds, 09/12/2020. He is POD 4. He reports feeling well. No reports of fatigue. He reports dizziness. He is happy with the cosmetic result. JPs under 50 mL daily. At height of 5 feet 9.5 inches, his ideal body weight is 168 pounds. He highest weight was 450 pounds, BMI 65.6. Today he comes in 315 pounds from 318 pounds, 1 week ago. He has lost 3 pounds in 1 week.. His body mass index is down from 65.6 to 46.0. Lifetime weight loss is 135 pounds. Percent excess weight loss is 48%. He is 147 pounds overweight. PHYSICAL EXAM: VITAL SIGNS: Height 5 foot 9.5 inches, weight 315 pounds. BMI 46.0 Vital Signs Temp 98.7 F 09/16/20 09:58 Pulse 76 09/16/20 09:58 Resp BP 157/85 09/16/20 09:58 Pulse Ox GENERAL: Well-developed in no acute distress. HEENT: No scleral icterus. Extraocular movements grossly intact. Hears conversational speech. No nasal drainage. NECK: Supple without lymphadenopathy. CHEST: Nonlabored respirations with equal bilateral excursions. CARDIOVASCULAR: Regular rate and regular rhythm. Distal 2+ pulses. ABDOMEN: Dressings clean dry and intact. JPs are serosanguinous. MUSCULOSKELETAL: No clubbing, cyanosis. NEURO: No focal or lateralizing signs. Cranial nerves 2 through 12 grossly within normal limits. PSYCH: Appropriate affect. Alert and oriented to person, place and time. SKIN: Good skin turgor. Well perfused. ASSESSMENT: 1. Morbid obesity due to excess calories 2. Body mass index of 62.3 to 46.4 3. Osteoarthritis of the knees. 4. Hypertensive heart disease. 5. Osteoarthritis of the hips 6. Bilateral lower extremity edema 7. Obstructive sleep apnea, improved 8. Venous insufficiency 9. Osteoarthritis of the lower back. 10. Vitamin D deficiency 11. Diabetes mellitus type 2, now improved 12. Iron deficiency anemia 13. Vitamin A deficiency 14. Erosive esophagitis 15. Status post sleeve gastrectomy 16. Status post panniculectomy PLAN: 1. Additional abdominal binder prescribed. 2. Follow up in 5 days 3. Lifting restrictions reinforced. 4. Dressings to be changed upon next clinic visit Objective - Vital Signs Vital signs: Vital Signs Temp 98.7 F 09/16/20 09:58 Pulse 76 09/16/20 09:58 Resp BP 157/85 09/16/20 09:58 Pulse Ox Intake & Output 09/15/20 09/16/20 09/16/20 18:59 06:59 18:59 Weight 143.335 kg
== END | disposition home or self-care (01) ==
LOC: BARWHC3 08:48
PROVIDERS: ATTEND Surgery Plastic and Reconstructive Surgery
DX: E66.01 Morbid (severe) obesity due to excess calories (principal); M17.0 Bilateral primary osteoarthritis of knee; M16.0 Bilateral primary osteoarthritis of hip; I11.9 Hypertensive heart disease without heart failure; G47.33 Obstructive sleep apnea (adult) (pediatric); R60.0 Localized edema; E55.9 Vitamin D deficiency, unspecified; E11.9 Type 2 diabetes mellitus without complications; D50.9 Iron deficiency anemia, unspecified; E50.9 Vitamin A deficiency, unspecified; K22.10 Ulcer of esophagus without bleeding; Z98.84 Bariatric surgery status; I87.2 Venous insufficiency (chronic) (peripheral); Z68.44 Body mass index [BMI] 60.0-69.9, adult; Z98.890 Other specified postprocedural states
CPT/HCPCS: 99212

== ENCOUNTER → 2020-09-21 | Outpatient (CLI) | payer MEDICARE, OTHER ==
[2020-09-21 13:03] VITALS: BP 162/72; PULSE 73; RESP 18; TEMP 97.8; BMI 46.3
--- NOTE | 2020-09-21 14:54 | P.PN ---
Subjective Progress Note Date: 09/21/20 DATE OF SERVICE: 09/21/2020 CHIEF COMPLAINT: Panniculitis HISTORY OF PRESENT ILLNESS: Kartik Andersen is a 69-year-old male status post sleeve gastrectomy, 03/09/19. He is 3 years out. He is now status post panniculectomy 13 pounds, 09/12/2020. He is almost 2 weeks out. His drain output is serosanguinos. His pain is well controlled. He has moderate swelling of the lower extremity. At height of 5 feet 9.5 inches, his ideal body weight is 168 pounds. He highest weight was 450 pounds, BMI 65.6. Today he comes in 318 pounds from 315 pounds, 1 week ago. He has gained 3 pounds in 1 week. His body mass index is down from 65.6 to 46.4. Lifetime weight loss is 132 pounds. Percent excess weight loss is 47% He is 147 pounds overweight. PHYSICAL EXAM: VITAL SIGNS: Height 5 foot 9.5 inches, weight 318 pounds. BMI 46.4 Vital Signs Temp 97.8 F 09/21/20 12:54 Pulse 73 09/21/20 12:54 Resp 18 09/21/20 12:54 BP 162/72 09/21/20 12:54 Pulse Ox GENERAL: Well-developed in no acute distress. HEENT: No scleral icterus. Extraocular movements grossly intact. Hears convers ational speech. No nasal drainage. NECK: Supple without lymphadenopathy. CHEST: Nonlabored respirations with equal bilateral excursions. CARDIOVASCULAR: Regular rate and regular rhythm. Distal 2+ pulses. ABDOMEN: External optifoam removed. No cellulitis. JPs are serosanguinous. Binder repositioned. Incision intact with exofin tape. All incisions and JPs cleansed with Chloraprep. MUSCULOSKELETAL: No clubbing, cyanosis. 4+ pitting edema NEURO: No focal or lateralizing signs. Cranial nerves 2 through 12 grossly within normal limits. PSYCH: Appropriate affect. Alert and oriented to person, place and time. SKIN: Good skin turgor. Well perfused. ASSESSMENT: 1. Morbid obesity due to excess calories 2. Body mass index of 62.3 to 46.4 3. Osteoarthritis of the knees. 4. Hypertensive heart disease. 5. Osteoarthritis of the hips 6. Bilateral lower extremity edema 7. Obstructive sleep apnea, improved 8. Venous insufficiency 9. Osteoarthritis of the lower back. 10. Vitamin D deficiency 11. Diabetes mellitus type 2, now improved 12. Iron deficiency anemia 13. Vitamin A deficiency 14. Erosive esophagitis 15. Status post sleeve gastrectomy 16. Status post panniculectomy 17. Bilateral lower extremity edema PLAN: 1. He is doing very well. 2. Continue MAIN drains until outputs less than 30 mL daily. 3. Follow up in 1 week for dressing changes. Objective - Vital Signs Vital signs: Vital Signs Temp 97.8 F 09/21/20 12:54 Pulse 73 09/21/20 12:54 Resp 18 09/21/20 12:54 BP 162/72 09/21/20 12:54 Pulse Ox Intake & Output 09/20/20 09/21/20 09/21/20 18:59 06:59 18:59 Weight 144.56 kg
== END | disposition home or self-care (01) ==
LOC: BARWHC3 12:23
PROVIDERS: ATTEND Surgery Plastic and Reconstructive Surgery
DX: E66.01 Morbid (severe) obesity due to excess calories (principal); M17.0 Bilateral primary osteoarthritis of knee; I11.9 Hypertensive heart disease without heart failure; M16.0 Bilateral primary osteoarthritis of hip; R60.0 Localized edema; G47.33 Obstructive sleep apnea (adult) (pediatric); M47.9 Spondylosis, unspecified; E55.9 Vitamin D deficiency, unspecified; E11.9 Type 2 diabetes mellitus without complications; D50.9 Iron deficiency anemia, unspecified; I87.2 Venous insufficiency (chronic) (peripheral); E50.9 Vitamin A deficiency, unspecified; K22.10 Ulcer of esophagus without bleeding; Z68.42 Body mass index [BMI] 45.0-49.9, adult; Z98.84 Bariatric surgery status
CPT/HCPCS: 99212

== ENCOUNTER → 2020-09-28 | Outpatient (CLI) | payer MEDICARE, OTHER ==
[2020-09-28 13:13] VITALS: PULSE 75; RESP 18; TEMP 99; BMI 45.7
[2020-09-28 13:20] VITALS: BP 146/78
--- NOTE | 2020-09-28 14:03 | P.PN ---
Subjective Progress Note Date: 09/28/20 DATE OF SERVICE: 09/28/2020 CHIEF COMPLAINT: Status post panniculectomy HISTORY OF PRESENT ILLNESS: Kartik Andersen is a 69-year-old male status post sleeve gastrectomy, 03/09/19. He is now status post panniculectomy 13 pounds, 09/12/2020. He is almost 3 weeks out. He reports pre-existing troubles with s welling of the legs in past surgeries including requiring Unna boots for chronic venous stasis disease. He has taken diuretics in the past for swelling of both legs. Otherwise, he denies moderate pain from his panniculectomy. No reports of fevers or chills. Protein intake is over 90 grams daily. At height of 5 feet 9.5 inches, his ideal body weight is 168 pounds. He highest weight was 450 pounds, BMI 65.6. Today he comes in 313 pounds from 318 pounds, 1 week ago. He has lost 5 pounds in 1 week. His body mass index is down from 65.6 to 45.7. Lifetime weight loss is 137 pounds. Percent excess weight loss is 48%. He is 145 pounds overweight. PHYSICAL EXAM: VITAL SIGNS: Height 5 foot 9.5 inches, weight 313 pounds. BMI 45.7 Vital Signs Temp 99 F 09/28/20 13:03 Pulse 75 09/28/20 13:03 Resp 18 09/28/20 13:03 BP 146/78 09/28/20 13:19 Pulse Ox GENERAL: Well-developed in no acute distress. HEENT: No scleral icterus. Extraocular movements grossly intact. Hears conversational speech. No nasal drainage. NECK: Supple without lymphadenopathy. CHEST: Nonlabored respirations with equal bilateral excursions. CARDIOVASCULAR: Regular rate and regular rhythm. Distal 2+ pulses. ABDOMEN: No cellulitis. External tape removed. MAIN drains 40 to 50mL serous daily. Binder re-fitted after incision cleansed with Chloroprep and dressing applied MUSCULOSKELETAL: No clubbing, cyanosis. 3+ pitting edema. Tender lower legs without cellulitis. NEURO: No focal or lateralizing signs. Cranial nerves 2 through 12 grossly within normal limits. PSYCH: Appropriate affect. Alert and oriented to person, place and time. SKIN: Good skin turgor. Well perfused. ASSESSMENT: 1. Morbid obesity due to excess calories 2. Body mass index of 62.3 to 45.7 3. Osteoarthritis of the knees. 4. Hypertensive heart disease. 5. Osteoarthritis of the hips 6. Bilateral lower extremity edema 7. Obstructive sleep apnea, improved 8. Venous insufficiency 9. Osteoarthritis of the lower back. 10. Vitamin D deficiency 11. Diabetes mellitus type 2, now improved 12. Iron deficiency anemia 13. Vitamin A deficiency 14. Erosive esophagitis 15. Status post sleeve gastrectomy 16. Status post panniculectomy 17. Bilateral lower extremity edema PLAN: 1. Recommend increase diuretic Saturday and Saturday of next week with labs and follow-up on Saturday. 2. Protein intake is adequate but watch for silent salt intake as a contributor of bilateral lower extremity edema. 3. Recommend lucero wrap from midfoot to knees for swelling along the lgs. 4. Follow-up 1 week. Plan agreed. Objective - Vital Signs Vital signs: Vital Signs Temp 99 F 09/28/20 13:03 Pulse 75 09/28/20 13:03 Resp 18 09/28/20 13:03 BP 146/78 09/28/20 13:19 Pulse Ox Intake & Output 09/27/20 09/28/20 09/28/20 18:59 06:59 18:59 Weight 142.428 kg
== END | disposition home or self-care (01) ==
LOC: BARWHC3 12:20
PROVIDERS: ATTEND Surgery Plastic and Reconstructive Surgery
DX: Z48.815 Encounter for surgical aftercare following surgery on the digestive system (principal); E66.01 Morbid (severe) obesity due to excess calories; M17.0 Bilateral primary osteoarthritis of knee; M16.0 Bilateral primary osteoarthritis of hip; I11.9 Hypertensive heart disease without heart failure; R60.0 Localized edema; G47.33 Obstructive sleep apnea (adult) (pediatric); I87.2 Venous insufficiency (chronic) (peripheral); E55.9 Vitamin D deficiency, unspecified; E11.9 Type 2 diabetes mellitus without complications; D50.9 Iron deficiency anemia, unspecified; E50.9 Vitamin A deficiency, unspecified; K22.10 Ulcer of esophagus without bleeding; Z98.84 Bariatric surgery status; Z68.44 Body mass index [BMI] 60.0-69.9, adult
CPT/HCPCS: 99212

== ENCOUNTER → 2020-10-05 | Outpatient (CLI) | payer MEDICARE, OTHER ==
[2020-10-05 15:18] LABS: ALT 35 U/L (4-49); AST 32 U/L (17-59); African American GFR (CKD) >90 (>60 ml/min/1.73 sqM); Albumin 3.5 g/dL (3.5-5.0); Alkaline Phosphatase 115 U/L (38-126); Anion Gap 7 mmol/L; Blood Urea Nitrogen 19 mg/dL (9-20); Calcium 8.9 mg/dL (8.4-10.2); Carbon Dioxide 32 mmol/L (22-30); Chloride 97 mmol/L (98-107); Glucose 96 mg/dL (74-99); Non-African American GFR(CKD) >90 (>60 ml/min/1.73 sqM); Potassium 3.6 mmol/L (3.5-5.1); Sodium 136 mmol/L (137-145); Total Bilirubin 0.7 mg/dL (0.2-1.3); Total Protein 6.4 g/dL (6.3-8.2)
[2020-10-05 15:19] LABS: Basophils % (A) 0 %; Eosinophils # (A) 0.2 k/uL (0-0.7); Eosinophils % (A) 3 %; HCT 42.5 % (39.0-53.0); Lymphocytes # (A) 1.3 k/uL (1.0-4.8); Lymphocytes % (A) 15 %; MCH 28.3 pg (25.0-35.0); MCV 88.3 fL (80.0-100.0); Mean Platelet Volume 8.5; Monocytes # (A) 0.5 k/uL (0-1.0); Monocytes % (A) 6 %; Neutrophils # (A) 6.2 k/uL (1.3-7.7); Neutrophils % (A) 75 %; Platelet Count 203 k/uL (150-450); RBC 4.81 m/uL (4.30-5.90); RDW 13.4 % (11.5-15.5); WBC 8.3 k/uL (3.8-10.6)
[2020-10-05 15:27] LABS: HGB 13.6 gm/dL (13.0-17.5)
== END ==
LOC: LABPAT 14:19
PROVIDERS: ATTEND Surgery Plastic and Reconstructive Surgery
DX: Z01.818 Encounter for other preprocedural examination (principal)
CPT/HCPCS: 80053; 85025

== ENCOUNTER → 2020-10-05 | Outpatient (CLI) | payer MEDICARE, OTHER ==
[2020-10-05 13:20] VITALS: BP 136/99; PULSE 76; RESP 18; TEMP 99.1; BMI 45.2
--- NOTE | 2020-10-05 14:05 | P.PN ---
Subjective Progress Note Date: 10/05/20 DATE OF SERVICE: 10/05/2020 CHIEF COMPLAINT: Status post panniculectomy HISTORY OF PRESENT ILLNESS: Kartik Andersen is a 69-year-old male status post sleeve gastrectomy, 03/09/19. He is now status post panniculectomy 13 pounds, 09/12/2020. He is 3 weeks out. He reports fatigue. He has lost weight to down to 311 pounds. He had swelling along the lower legs where he reports improvement. He has pre-existing history of venous stasis disease. At height of 5 feet 9.5 inches, his ideal body weight is 168 pounds. He highest weight was 450 pounds, BMI 65.6. Today he comes in 310 pounds from 313 pounds, 1 week ago. He has lost 3 pounds in 1 week. His body mass index is down from 65.6 to 45.3. Lifetime weight loss is 140 pounds. Percent excess weight loss is 50%. He is 142 pounds overweight. PHYSICAL EXAM: VITAL SIGNS: Height 5 foot 9.5 inches, weight 310 pounds. BMI 45.3 Vital Signs Temp 99.1 F 10/05/20 13:10 Pulse 76 10/05/20 13:10 Resp 18 10/05/20 13:10 BP 136/99 10/05/20 13:10 Pulse Ox GENERAL: Well-developed in no acute distress. HEENT: No scleral icterus. Extraocular movements grossly intact. Hears conversational speech. No nasal drainage. NECK: Supple without lymphadenopathy. CHEST: Nonlabored respirations with equal bilateral excursions. CARDIOVASCULAR: Regular rate and regular rhythm. Distal 2+ pulses. ABDOMEN: Incision clean dry and intact from panniculectomy. MAIN serosanguineous. No signs of infection. Incisions were cleansed with chloraprep. MAIN outputs averaging 30 mL daily. MUSCULOSKELETAL: No clubbing, cyanosis. Lower extremity edema 2+ down from 3+ 1 week ago. NEURO: No focal or lateralizing signs. Cranial nerves 2 through 12 grossly within normal limits. PSYCH: Appropriate affect. Alert and oriented to person, place and time. SKIN: Good skin turgor. Well perfused. ASSESSMENT: 1. Morbid obesity due to excess calories 2. Body mass index of 62.3 to 45.3 3. Osteoarthritis of the knees. 4. Hypertensive heart disease. 5. Osteoarthritis of the hips 6. Bilateral lower extremity edema 7. Obstructive sleep apnea, improved 8. Venous insufficiency 9. Osteoarthritis of the lower back. 10. Vitamin D deficiency 11. Diabetes mellitus type 2, now improved 12. Iron deficiency anemia 13. Vitamin A deficiency 14. Erosive esophagitis 15. Status post sleeve gastrectomy 16. Status post panniculectomy 17. Fatigue PLAN: 1. Continue MAIN drains. 2. Recommend CBC and BMP for anemia including electrolyte check. 3. Overall, he looks great! Objective - Vital Signs Vital signs: Vital Signs Temp 99.1 F 10/05/20 13:10 Pulse 76 10/05/20 13:10 Resp 18 10/05/20 13:10 BP 136/99 10/05/20 13:10 Pulse Ox Intake & Output 10/04/20 10/05/20 10/05/20 18:59 06:59 18:59 Weight 141.067 kg
== END | disposition home or self-care (01) ==
LOC: BARWHC3 12:29
PROVIDERS: ATTEND Surgery Plastic and Reconstructive Surgery
DX: E66.01 Morbid (severe) obesity due to excess calories (principal); M17.0 Bilateral primary osteoarthritis of knee; I11.9 Hypertensive heart disease without heart failure; M16.0 Bilateral primary osteoarthritis of hip; R60.0 Localized edema; G47.33 Obstructive sleep apnea (adult) (pediatric); I87.2 Venous insufficiency (chronic) (peripheral); E55.9 Vitamin D deficiency, unspecified; E11.9 Type 2 diabetes mellitus without complications; D50.9 Iron deficiency anemia, unspecified; K22.10 Ulcer of esophagus without bleeding; R53.83 Other fatigue; Z68.42 Body mass index [BMI] 45.0-49.9, adult; Z98.84 Bariatric surgery status; M47.9 Spondylosis, unspecified
CPT/HCPCS: 99212

== ENCOUNTER → 2020-10-12 | Outpatient (CLI) | payer MEDICARE, OTHER ==
[2020-10-12 12:58] VITALS: BP 146/78; PULSE 51; TEMP 98; BMI 44.8
--- NOTE | 2020-10-12 13:35 | P.PN ---
Subjective Progress Note Date: 10/12/20 DATE OF SERVICE: 10/12/2020 CHIEF COMPLAINT: Status post panniculectomy HISTORY OF PRESENT ILLNESS: Kartik Andersen is a 69-year-old male status post sleeve gastrectomy, 03/09/19. He is now status post panniculectomy 13 pounds, 09/12/2020. He is 4 weeks out. He has lost more weight down to 308 pounds. No reports of abdominal pain. At height of 5 feet 9.5 inches, his ideal body weight is 168 pounds. He highest weight was 450 pounds, BMI 65.6. Today he comes in 310 pounds unchanged from 1 week ago. His body mass index is down from 65.6 to 45.3. Lifetime weight loss is 140 pounds. Percent excess weight loss is 50%. He is 142 pounds overweight. PHYSICAL EXAM: VITAL SIGNS: Height 5 foot 9.5 inches, weight 310 pounds. BMI 45.3 Vital Signs Temp 98.0 F 10/12/20 12:48 Pulse 51 L 10/12/20 12:48 Resp BP 146/78 10/12/20 12:48 Pulse Ox GENERAL: Well-developed in no acute distress. HEENT: No scleral icterus. Extraocular movements grossly intact. Hears conversational speech. No nasal drainage. NECK: Supple without lymphadenopathy. CHEST: Nonlabored respirations with equal bilateral excursions. CARDIOVASCULAR: Regular rate and regular rhythm. Distal 2+ pulses. ABDOMEN: Granulated panniculectomy. No signs of infection. Binder present. MUSCULOSKELETAL: No clubbing, cyanosis. Lower extremity edema 1+ NEURO: No focal or lateralizing signs. Cranial nerves 2 through 12 grossly within normal limits. PSYCH: Appropriate affect. Alert and oriented to person, place and time. SKIN: Good skin turgor. Well perfused. ASSESSMENT: 1. Morbid obesity due to excess calories 2. Body mass index of 62.3 to 44.8 3. Osteoarthritis of the knees. 4. Hypertensive heart disease. 5. Osteoarthritis of the hips 6. Bilateral lower extremity edema 7. Obstructive sleep apnea, improved 8. Venous insufficiency 9. Osteoarthritis of the lower back. 10. Vitamin D deficiency 11. Diabetes mellitus type 2, now improved 12. Iron deficiency anemia 13. Vitamin A deficiency 14. Erosive esophagitis 15. Status post sleeve gastrectomy 16. Status post panniculectomy 17. Fatigue PLAN: 1. Binder is more snug. Recommend wearing binder continuously 2. Wound care reviewed. Objective - Vital Signs Vital signs: Vital Signs Temp 98.0 F 10/12/20 12:48 Pulse 51 L 10/12/20 12:48 Resp BP 146/78 10/12/20 12:48 Pulse Ox Intake & Output 10/11/20 10/12/20 10/12/20 18:59 06:59 18:59 Weight 139.706 kg
== END ==
LOC: BARWHC3 12:22
PROVIDERS: ATTEND Surgery Plastic and Reconstructive Surgery
DX: E66.01 Morbid (severe) obesity due to excess calories (principal); M17.0 Bilateral primary osteoarthritis of knee; M16.0 Bilateral primary osteoarthritis of hip; E11.9 Type 2 diabetes mellitus without complications; E55.9 Vitamin D deficiency, unspecified; I11.9 Hypertensive heart disease without heart failure; G47.33 Obstructive sleep apnea (adult) (pediatric); I87.2 Venous insufficiency (chronic) (peripheral); D50.9 Iron deficiency anemia, unspecified; M47.9 Spondylosis, unspecified; K20.80 Other esophagitis without bleeding; Z98.84 Bariatric surgery status; E50.9 Vitamin A deficiency, unspecified; R22.43 Localized swelling, mass and lump, lower limb, bilateral; R53.83 Other fatigue; Z68.42 Body mass index [BMI] 45.0-49.9, adult
CPT/HCPCS: 99212

== ENCOUNTER → 2020-10-19 | Outpatient (CLI) | payer MEDICARE, OTHER ==
[2020-10-19 14:17] VITALS: BP 151/85; PULSE 84; RESP 18; TEMP 98.9; BMI 44.8
--- NOTE | 2020-10-19 14:40 | P.PN ---
Subjective Progress Note Date: 10/19/20 JPs are less than 30 mL and serous. All drains removed. Binder described. Follow-up in 1 week. Awareness of seroma described. Objective - Vital Signs Vital signs: Vital Signs Temp 98.9 F 10/19/20 14:11 Pulse 84 10/19/20 14:11 Resp 18 10/19/20 14:11 BP 151/85 10/19/20 14:11 Pulse Ox Intake & Output 10/18/20 10/19/20 10/19/20 18:59 06:59 18:59 Weight 139.706 kg
== END | disposition home or self-care (01) ==
LOC: BARWHC3 13:52
PROVIDERS: ATTEND Surgery Plastic and Reconstructive Surgery
DX: E66.01 Morbid (severe) obesity due to excess calories (principal); I10 Essential (primary) hypertension; Z98.84 Bariatric surgery status; Z46.51 Encounter for fitting and adjustment of gastric lap band
CPT/HCPCS: 99212

== ENCOUNTER → 2020-10-26 | Outpatient (CLI) | payer MEDICARE, OTHER ==
[2020-10-26 13:06] VITALS: BP 146/78; PULSE 63; RESP 18; TEMP 98.4; BMI 45.3
--- NOTE | 2020-10-26 14:14 | P.PN ---
Subjective Progress Note Date: 10/26/20 He has gained 3 pounds since MAIN removal. He reports drainage from incision with is new. Plan for US of the abdomen with seroma drainage. Use water pill for swelling and hydrogen along all incisions. No cellulitis. He needs a new abdominal binder. Objective - Vital Signs Vital signs: Vital Signs Temp 98.4 F 10/26/20 12:48 Pulse 63 10/26/20 12:48 Resp 18 10/26/20 12:48 BP 146/78 10/26/20 12:48 Pulse Ox Intake & Output 10/25/20 10/26/20 10/26/20 18:59 06:59 18:59 Weight 141.203 kg
== END ==
LOC: BARWHC3 12:25
PROVIDERS: ATTEND Surgery Plastic and Reconstructive Surgery
DX: E66.01 Morbid (severe) obesity due to excess calories (principal); Z46.51 Encounter for fitting and adjustment of gastric lap band; Z98.84 Bariatric surgery status
CPT/HCPCS: 99212

== ENCOUNTER → 2020-11-02 | Outpatient (CLI) | payer MEDICARE, OTHER ==
[2020-11-02 13:24] VITALS: BP 151/82; PULSE 74; RESP 18; TEMP 97.9; BMI 43.8
--- NOTE | 2020-11-02 13:48 | P.PN ---
Subjective Progress Note Date: 11/02/20 DATE OF SERVICE: 11/02/2020 CHIEF COMPLAINT: Status post panniculectomy HISTORY OF PRESENT ILLNESS: Kartik Andersen is a 69-year-old male status post sleeve gastrectomy, 03/09/19. He is now status post panniculectomy 13 pounds, 09/12/2020. He is almost 2 months postop. He has lost more weight from 319 to 301 pounds. At home, he is less than 300 pounds. He reports decreased drainage from his lower abdominal pannus wound. At height of 5 feet 9.5 inches, his ideal body weight is 168 pounds. Highest weight was 450 pounds, BMI 65.6. Today he comes in 300 pounds from 311 pounds, 1 week ago. He has lost 10 pounds in 1 week. His body mass index is down from 65.6 to 43.8. Lifetime weight loss is 150 pounds. Percent excess weight loss is 53 %. He is 132 pounds overweight. PHYSICAL EXAM: VITAL SIGNS: Height 5 foot 9.5 inches, weight 311 pounds. BMI 45.3 Vital Signs Temp 97.9 F 11/02/20 13:21 Pulse 74 11/02/20 13:21 Resp 18 11/02/20 13:21 BP 151/82 11/02/20 13:21 Pulse Ox GENERAL: Well-developed in no acute distress. HEENT: No scleral icterus. Extraocular movements grossly intact. Hears conversational speech. No nasal drainage. NECK: Supple without lymphadenopathy. CHEST: Nonlabored respirations with equal bilateral excursions. CARDIOVASCULAR: Regular rate and regular rhythm. Distal 2+ pulses. ABDOMEN: No signs of infection. No cellulitis. Serous drainage along the inferior incision with Zac. Palpable swelling of the abdomen with seroma. MUSCULOSKELETAL: No clubbing, cyanosis. Legs 1+ trace edema. NEURO: No focal or lateralizing signs. PSYCH: Appropriate affect. Alert and oriented to person, place and time. SKIN: Good skin turgor. Well perfused. ASSESSMENT: 1. Morbid obesity due to excess calories 2. Body mass index of 62.3 to 43.8 3. Osteoarthritis of the knees. 4. Hypertensive heart disease. 5. Osteoarthritis of the hips 6. Bilateral lower extremity edema 7. Obstructive sleep apnea, improved 8. Venous insufficiency 9. Osteoarthritis of the lower back. 10. Vitamin D deficiency 11. Diabetes mellitus type 2, now improved 12. Iron deficiency anemia 13. Vitamin A deficiency 14. Erosive esophagitis 15. Status post sleeve gastrectomy 16. Status post panniculectomy, 13 pounds PLAN: 1. Recommend ultrasound of the abdomen to evaluate for abdominal seroma. 2. May need ultrasound drainage of abdominal seroma Objective - Vital Signs Vital signs: Vital Signs Temp 97.9 F 11/02/20 13:21 Pulse 74 11/02/20 13:21 Resp 18 11/02/20 13:21 BP 151/82 11/02/20 13:21 Pulse Ox Intake & Output 11/01/20 11/02/20 11/02/20 18:59 06:59 18:59 Weight 136.531 kg
== END ==
LOC: BARWHC3 12:25
PROVIDERS: ATTEND Surgery Plastic and Reconstructive Surgery
DX: E66.01 Morbid (severe) obesity due to excess calories (principal); Z68.41 Body mass index [BMI] 40.0-44.9, adult; D50.9 Iron deficiency anemia, unspecified; E11.9 Type 2 diabetes mellitus without complications; E55.9 Vitamin D deficiency, unspecified; G47.33 Obstructive sleep apnea (adult) (pediatric); I11.9 Hypertensive heart disease without heart failure; I87.2 Venous insufficiency (chronic) (peripheral); K22.10 Ulcer of esophagus without bleeding; M16.0 Bilateral primary osteoarthritis of hip; M17.0 Bilateral primary osteoarthritis of knee; Z98.84 Bariatric surgery status
CPT/HCPCS: 99212

== ENCOUNTER → 2020-11-07 | Outpatient (CLI) | payer MEDICARE, OTHER ==
--- NOTE | 2020-11-07 09:37 | US ---
EXAMINATION TYPE: US abdomen limited DATE OF EXAM: 11/07/2020 COMPARISON: NONE CLINICAL HISTORY: 69-year-old male L76.34 Seroma. Drainage mid abdomen at scar. Bariatric surgery 09/13 Technique: Scans area of concern, right/mid abdomen at incision. FINDINGS: [place] Barrel Ribs notes: Mildly complex, elongated fluid collection noted = 5.5 x 1.2 x 5.9cm. This seems to be localized to the deep subcutaneous adipose layer overlying the abdominal wall muscul ature. IMPRESSION: Mildly complex, elongated fluid collection measuring 5.9 x 5.5 x 1.2 cm underlying the right mid abdo bekah incision site located within the deep aspect of the subcutaneous adipose layer. Likely seroma. Correlate for other possible postoperative fluid collections.
== END | disposition home or self-care (01) ==
LOC: RADUSWWP 07:09
PROVIDERS: ATTEND Surgery Plastic and Reconstructive Surgery
DX: L76.34 Postprocedural seroma of skin and subcutaneous tissue following other procedure (principal)
CPT/HCPCS: 76705

== ENCOUNTER 2020-11-10 12:28 | Day surgery (SDC) | payer MEDICARE, OTHER ==
[2020-11-10 12:48] VITALS: RESP 18; TEMP 97.6
[2020-11-10 13:56] VITALS: BP 146/83; PULSE 64
--- NOTE | 2020-11-10 15:29 | US ---
EXAMINATION TYPE: US asp abscess/hemat/cyst DATE OF EXAM: 11/10/2020 HISTORY: Seroma postop FINDINGS: Maximal barrier technique was utilized. The skin overlying a suitable path to the fluid in the lower abdomen anterior subcutaneous tissues was localized with ultrasound and the overlying skin prepped and draped. Lidocaine was used for local anesthesia. A skin marques made with a scalpel. Acc ess was gained under direct ultrasound guidance to the fluid with a 5 Turkish catheter over guide need le, needle was removed. Ultrasound was utilized using sterile technique. Approximately 15 cc of serou s sanguinous fluid was aspirated. No residual fluid identified. Hemostasis achieved. No immediate co mplication and the patient remained in stable condition. IMPRESSION: STATUS POST ULTRASOUND GUIDED SEROMA ASPIRATION, THIS PROCEDURE WAS PERFORMED BY THE [facility].
== END 2020-11-10 14:13 | disposition home or self-care (01) ==
LOC: RADPROMAIN 12:28
PROVIDERS: ATTEND Surgery Plastic and Reconstructive Surgery
DX: L76.34 Postprocedural seroma of skin and subcutaneous tissue following other procedure (principal)
CPT/HCPCS: 10160; 76942

== ENCOUNTER → 2020-11-16 | Outpatient (CLI) | payer MEDICARE, OTHER ==
--- NOTE | 2020-11-16 14:54 | P.PN ---
Subjective Progress Note Date: 11/16/20 DATE OF SERVICE: 11/16/2020 CHIEF COMPLAINT: Status post panniculectomy HISTORY OF PRESENT ILLNESS: Kartik Andersen is a 70-year-old male status post sleeve gastrectomy, 03/09/19. He is now status post panniculectomy 13 pounds, 09/12/2020. He is 2 months postop. He reports weighing as much as 40-70 pounds lifetime. Additionally, he is status post drainage of abdominal seroma. He feels well. At height of 5 feet 9.5 inches, his ideal body weight is 168 pounds. Highest weight was 470 pounds, BMI 68.6. Today he comes in 303 pounds from 300 pounds, 2 weeks ago. He has gained 3 pounds in 2 weeks. His body mass index is down from 68.6 to 44.2. Lifetime weight loss is 167 pounds. Percent excess weight loss is 55 %. He is 135 pounds overweight. PHYSICAL EXAM: VITAL SIGNS: Height 5 foot 9.5 inches, weight 303 pounds. BMI 44.2 Vital Signs Temp 98.4 F 11/16/20 14:46 Pulse 80 11/16/20 14:46 Resp 18 11/16/20 14:46 BP 135/84 11/16/20 14:46 Pulse Ox GENERAL: Well-developed in no acute distress. HEENT: No scleral icterus. Extraocular movements grossly intact. Hears conversational speech. No nasal drainage. NECK: Supple without lymphadenopathy. CHEST: Nonlabored respirations with equal bilateral excursions. CARDIOVASCULAR: Regular rate and regular rhythm. Distal 2+ pulses. ABDOMEN: No signs of infection. No cellulitis. MUSCULOSKELETAL: No clubbing, cyanosis. Legs 2+ trace edema. NEURO: No focal or lateralizing signs. PSYCH: Appropriate affect. Alert and oriented to person, place and time. SKIN: Good skin turgor. Well perfused. ASSESSMENT: 1. Morbid obesity due to excess calories 2. Body mass index of 62.3 to 44.2 3. Osteoarthritis of the knees. 4. Hypertensive heart disease. 5. Osteoarthritis of the hips 6. Bilateral lower extremity edema 7. Obstructive sleep apnea, improved 8. Venous insufficiency 9. Osteoarthritis of the lower back. 10. Vitamin D deficiency 11. Diabetes mellitus type 2, now improved 12. Iron deficiency anemia 13. Vitamin A deficiency 14. Erosive esophagitis 15. Status post sleeve gastrectomy 16. Status post panniculectomy, 13 pounds PLAN: 1. Continue with local wound care. 2. Follow up 1 month. 3. Continue to wear abdominal binder Objective - Vital Signs Vital signs: Vital Signs Temp 98.4 F 11/16/20 14:46 Pulse 80 11/16/20 14:46 Resp 18 11/16/20 14:46 BP 135/84 11/16/20 14:46 Pulse Ox Intake & Output 11/15/20 11/16/20 11/16/20 18:59 06:59 18:59 Weight 137.892 kg
== END ==
CPT/HCPCS: 99212

== ENCOUNTER → 2021-02-15 | Outpatient (CLI) | payer MEDICARE, OTHER ==
[2021-02-15 14:01] VITALS: BP 151/74; PULSE 73; RESP 18; TEMP 97.9; BMI 44.9
--- NOTE | 2021-02-15 14:06 | P.PN ---
Subjective Progress Note Date: 02/15/21 He had spontaneous bloody drainage from his panniculectomy site. He had cultures due at another facility. Recommend CBC and had cultures. He is on Augmentin. No erythema. No fevers. Packing removed. Need fax cultured sheet. Follow up 1 week. May need 4 weeks to heal. Need MVI daily. Needs labs. Objective - Vital Signs Vital signs: Vital Signs Temp 97.9 F 02/15/21 13:51 Pulse 73 02/15/21 13:51 Resp 18 02/15/21 13:51 BP 151/74 02/15/21 13:51 Pulse Ox Intake & Output 02/14/21 02/15/21 02/15/21 18:59 06:59 18:59 Weight 140.16 kg
[2021-02-15 15:34] LABS: HCT 43.2 % (39.0-53.0); HGB 14.8 gm/dL (13.0-17.5); MCH 28.6 pg (25.0-35.0); MCHC 34.1 g/dL (31.0-37.0); MCV 83.7 fL (80.0-100.0); Mean Platelet Volume 8.8; Platelet Count 155 k/uL (150-450); RBC 5.17 m/uL (4.30-5.90); RDW 14.5 % (11.5-15.5); WBC 8.2 k/uL (3.8-10.6)
== END ==
LOC: BARWHC3 13:15
PROVIDERS: ATTEND Surgery Plastic and Reconstructive Surgery
DX: E66.01 Morbid (severe) obesity due to excess calories (principal); Z68.42 Body mass index [BMI] 45.0-49.9, adult; Z87.891 Personal history of nicotine dependence; Z88.6 Allergy status to analgesic agent
CPT/HCPCS: 85027; 36415; G0463; 99212

== ENCOUNTER → 2021-02-22 | Outpatient (CLI) | payer MEDICARE, OTHER ==
[2021-02-22 15:12] VITALS: BP 151/93; PULSE 75; RESP 18; TEMP 98.1; BMI 44.6
--- NOTE | 2021-02-22 16:20 | P.PN ---
Subjective Progress Note Date: 02/22/21 His weight is stable. Recommend CT in 2 weeks and follow up. He went to [facility] and has not checked. Objective - Vital Signs Vital signs: Vital Signs Temp 98.1 F 02/22/21 15:04 Pulse 75 02/22/21 15:04 Resp 18 02/22/21 15:04 BP 151/93 02/22/21 15:04 Pulse Ox Intake & Output 02/21/21 02/22/21 02/22/21 18:59 06:59 18:59 Weight 139.253 kg
== END | disposition home or self-care (01) ==
LOC: BARWHC3 14:53
PROVIDERS: ATTEND Surgery Plastic and Reconstructive Surgery
DX: E66.01 Morbid (severe) obesity due to excess calories (principal); Z68.41 Body mass index [BMI] 40.0-44.9, adult
CPT/HCPCS: 99212

== ENCOUNTER → 2021-03-08 | Outpatient (CLI) | payer MEDICARE, OTHER ==
[2021-03-08 09:47] LABS: African American GFR (CKD) >90 (>60 ml/min/1.73 sqM); Blood Urea Nitrogen 19 mg/dL (9-20); Non-African American GFR(CKD) 80 (>60 ml/min/1.73 sqM)
--- NOTE | 2021-03-08 11:51 | CT ---
EXAMINATION TYPE: CT abdomen pelvis w con DATE OF EXAM: 03/08/2021 COMPARISON: None HISTORY: Diverticulitis CT DLP: 2628.90 mGycm CONTRAST: CT scan of the abdomen and pelvis is performed with Oral Contrast and with IV Contrast, patient injec nana with 100 ml mL of Isovue 300. FINDINGS: LUNG BASES-: No visible nodule. No infiltrate. LIVER/GB: No calcified gallstones. No space occupying hepatic lesion. Biliary tree is of normal ca liber. PANCREAS: No inflammation. No distinct mass. SPLEEN: No splenic enlargement. No lesion seen. ADRENALS: No nodule. No thickening. KIDNEYS/BLADDER: No hydronephrosis. No nephrolithiasis. No distinct renal mass. Urinary bladder g rossly unremarkable. BOWEL: Normal appendix. Normal bowel caliber. No inflammation. GENITAL ORGANS: No gross abnormality. LYMPH NODES: No greater than 1cm abdominal or pelvic lymph nodes are appreciated. AORTA: No significant abnormality. OSSEOUS STRUCTURES: Degenerative and postoperative changes lumbar spine. OTHER: No significant additional abnormality is seen. IMPRESSION: 1. No evidence for diverticulitis.
== END | disposition home or self-care (01) ==
LOC: RADCTMAIN 08:43
PROVIDERS: ATTEND Surgery Plastic and Reconstructive Surgery
DX: K57.32 Diverticulitis of large intestine without perforation or abscess without bleeding (principal)
CPT/HCPCS: 82565; 84520; 74177; 36415; Q9967

== ENCOUNTER → 2021-03-15 | Outpatient (CLI) | payer MEDICARE, OTHER ==
[2021-03-15 15:07] VITALS: BP 151/85; PULSE 64; RESP 18; TEMP 97.8; BMI 45.3
--- NOTE | 2021-03-15 15:35 | P.PN ---
Subjective Progress Note Date: 03/15/21 He comes in with water weight. He is up 5 pounds. He reports minimal drainage. Protein daily is under 40 grams daily. Recommend increase protein. Do diuretic. No advance directive. Increase protein. Objective - Vital Signs Vital signs: Vital Signs Temp 97.8 F 03/15/21 14:59 Pulse 64 03/15/21 14:59 Resp 18 03/15/21 14:59 BP 151/85 03/15/21 14:59 Pulse Ox Intake & Output 03/14/21 03/15/21 03/15/21 18:59 06:59 18:59 Weight 141.521 kg
== END | disposition home or self-care (01) ==
LOC: BARWHC3 14:41
PROVIDERS: ATTEND Surgery Plastic and Reconstructive Surgery
DX: E66.01 Morbid (severe) obesity due to excess calories (principal); Z68.42 Body mass index [BMI] 45.0-49.9, adult
CPT/HCPCS: 99211